=== PATIENT | male | born 1950 | race Caucasian/White ===

== ENCOUNTER 2017-05-21 03:03 | Inpatient (IN) ==
[2017-05-21] MEDS ORDERED: Naloxone 0.4 MG/ML INJ IVP PRN (06:17)
[2017-05-21] MEDS ORDERED: Ondansetron 4 MG/2 ML VIAL IVP PRN (06:17)
[2017-05-21] MEDS ORDERED: Dextrose Gel 15 GM PO PRN ×2 (06:20)
[2017-05-21] MEDS ORDERED: *HR* Dextrose 50 % in Water (Syg) 50 ML SYRINGE IVP PRN (06:20)
[2017-05-21] MEDS ORDERED: D5% in Water 1,000 ML IVC PRN (06:20)
[2017-05-21] MEDS ORDERED: Insulin LISPRO 300 UNITS/3 ML VIAL SQ SCH ×2 (06:20→21:00)
[2017-05-21] MEDS ORDERED: niCARdipine 20 MG/200 ML MLS IVC SCH (06:30)
--- NOTE | 2017-05-21 06:41 | Internal Med History&Physical ---
Date of Encounter: 05/21/17 Time of Encounter: 05:50 Assessment and Plan (1) Abdominal pain Current visit: No Status: Acute Resolved at this time reports of history of gastric ulcer in the past will continue supportive care at this time CT findings reported calcifications in the abdominal aorta suggesting a remote dissection Case discussed with Vascular surgery and given clinical presentation and no limb ischemia, medical management is recommended Aggressive BP control, to maintain BP<120/80 Noted to have elevated Lipase, with no acute findings on CT suggestive of pancreatitis, will closely monitor Qualifiers: Abdominal location: generalized Qualified Code(s): R10.84 - Generalized abdominal pain (2) Abdominal aortic aneurysm Current visit: Yes Status: Chronic Qualifiers: Presence of rupture: without rupture Qualified Code(s): I71.4 - Abdominal aortic aneurysm, without rupture (3) Hypertension Current visit: Yes Status: Chronic Started on Nicardipine drip due to HTN urgency will titrate off drip closely monitor BP to maintain BP<120/80 Resume home medications after verification Qualifiers: Hypertension type: essential hypertension Qualified Code(s): I10 - Essential (primary) hypertension (4) DVT prophylaxis Current visit: Yes Status: Acute Heparin SQ (5) CKD (chronic kidney disease) stage 3, GFR 30-59 ml/min Current visit: Yes Status: Chronic Renal function at baseline continue to monitor (6) Type 2 diabetes mellitus Current visit: No Status: Acute Reports history of neuropathy continue sliding scale insulin algorithm closely monitor FS and BG Resume home insulin dosing after verifying home medications Qualifiers: Diabetes mellitus complication status: with unspecified complications 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 Diamond is a 66 year old male with PMH of CAD, HTN, DM, chronic smoker, obesity who was transferred from [facility] for evaluation remote abdominal aortic dissection. Patient went to [facility] for evaluation of abdominal pain x 3 days. He reports of generalized abd pain associated with nausea and vomiting. Upon further evaluation, patient's CT abd/pelvis reported calcifications in the abd aorta suggesting remote dissection. Case was discussed with the vascular surgeon talent acquisition specialist by the ER physician prior to transfer. At this time patient is resting in bed and reports of no abdominal pain at this time. Denies any headache, chest pain, sob, abd pain, n/v, fever or chills. I spoke with Dr. Vargas who will see the patient but states given the calcifications on the CT scan, it appears to be a chronic process and since no limb ischemia is present, medical management with aggressive BP control is recommended. Patient reports of being an everyday smoker. Past Med Surg Social Fam HX - Past Medical History Medical history: diabetes, hypertension, myocardial infarction Psychiatric history: no psych history - Social History Smoking Status: Current every day smoker Packs per day: 1 PACK EVERY 3 DAYS Smokeless Tobacco Status: No Alcohol use: none Drug use: none Internal Medicine - H&P: Meds Carvedilol [Coreg] 6.25 mg PO BIDWM 05/29/16 [History] GlipiZIDE XL (24 HR) [Glucotrol XL] 2.5 mg PO 0800 05/29/16 [History] Losartan Potassium [Cozaar] 100 mg PO DAILY 05/29/16 [History] Pioglitazone HCl [Actos] 15 mg PO DAILY 05/29/16 [History] Pravastatin Sodium [Pravachol] 40 mg PO HS 05/29/16 [History] RX: Aspirin 81 mg PO DAILY 05/29/16 [History] RX: Hydralazine HCl 50 mg PO BID 05/29/16 [History] RX: hydroCHLOROthiazide [Hydrochlorothiazide] 12.5 mg PO DAILY #10 tablet [Rx] Allergies codeine Adverse Reaction (Verified 05/21/17 00:25) Vomiting All Systems PM: A 10-system review of systems was performed and is negative for pertinent findings except as documented above in the HPI. - Constitutional Constitutional: as per HPI - Constitutional Vitals: Temp Pulse Resp BP Pulse Ox 97.6 F 71 20 149/72 95 05/21/17 05:16 05/21/17 05:31 05/21/17 05:16 05/21/17 05:16 05/21/17 05:31 General appearance: Present: cooperative, A&O X 3, no acute distress, obese, answers questions appropriately - Head Head exam: Present: atraumatic, normocephalic - Respiratory Respiratory exam: Present: CTAB. Absent: accessory muscle use, rales, rhonchi, wheezes - Cardiovascular Cardiovascular exam: Present: RRR, +S1, +S2. Absent: diastolic murmur, gallop, rubs, systolic murmur - GI/Abdominal GI/Abdominal exam: Present: normal bowel sounds, soft, no peritoneal signs. Absent: distended, tenderness - Extremities Exam Extremities exam: Present: warm, radial pulses palpable and symetrical. Absent : calf tenderness, pedal edema - Neurological Exam Neurological exam: Present: alert, oriented X3 - Psychiatric Psychiatric exam: Present: normal affect, normal mood
[2017-05-21 07:01] LABS: Prothrombin Time 10.5 Seconds (9.4-12.1)
[2017-05-21 07:06] LABS: Albumin 2.6 g/dL (3.5-5.0); Albumin/Globulin Ratio 0.7 (1.1-2.2); Basophils # 0.1 K/mcL (0.0-0.2); Basophils % 0.4 %; Bilirubin,Total 0.4 mg/dL (0.2-1.2); Calcium 8.5 mg/dL (8.6-10.8); Chol/HDL Ratio 6.5 (0-4.9); Eosinophils # 0.1 K/mcL (0.0-0.6); Eosinophils % 0.9 %; Globulin 3.6 g/dL (2.4-3.5); Hematocrit 40.8 % (37.5-50.1); Hemoglobin 13.4 g/dL (12.9-16.9); Immature Granulocytes % 0.9 % (0-4); Lymphocytes # 1.5 K/mcL (0.6-4.6); Lymphocytes % 13.3 %; Magnesium 1.4 mg/dL (1.6-2.6); Mean Corpuscular HGB Conc 32.8 g/dL (31.6-35.5); Mean Corpuscular Volume 85.4 fL (83.0-100.0); Monocytes % 8.9 %; Neutrophils # 8.5 K/mcL (1.6-8.9); Phosphorous 2.6 mg/dL (2.3-4.7); Platelet Count 191 K/mcL (140-400); Potassium 4.1 mEq/L (3.5-4.5); Red Blood Count 4.78 M/mcL (4.19-5.50); Red Cell Distribution Width 14.4 % (11.5-14.5); Segmented Neutrophils % 75.6 %; Total Protein 6.2 g/dL (6.0-8.3)
[2017-05-21] MEDS ORDERED: niCARdipine 40 MG/200 ML MLS IVC SCH ×5 (08:30→09:00)
--- NOTE | 2017-05-21 09:42 | Vascular/Endovasc Consult Note ---
Date of Encounter: 05/21/17 Time of Encounter: 07:40 Assessment and Plan (1) Aortic dissection, abdominal Current Visit: Yes Status: Chronic The patient reports several days of nausea and abdominal pain. He is now pain free. As part of his evaluation he underwent a noncontrast CT scan that revealed evidence of a calcified aortic dissection. The patient has no evidence of vascular compromise. The dissection appears chronic. There are no aneurysmal segments. He has palpable pedal pulses. Given the degree of calcium , this appears to be a chronic condition. In the absence of aneurysmal degeneration, no further evaluation is necessary at this time. Recommend control of hypertension. He may follow-up in vascular clinic after discharge. (2) Mixed hyperlipidemia Current Visit: Yes Status: Acute (3) CKD (chronic kidney disease) stage 3, GFR 30-59 ml/min Current Visit: Yes Status: Chronic (4) Hypertension Current Visit: Yes Status: Chronic The patient was counseled regarding atherosclerotic risk factor reduction. 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 - History of Present Illness Consult date: 05/21/17 Requesting physician: Luz Maria Stewart Consult reason: aortic dissection Chief complaint: Abdominal pain History of present illness: Mr. Diamond is a 66 year old male with a history of hypertensino, hyperlipidemai , diabetes, chronic kidney disease and tobacco abuse. The patient reports that he was experieincing progressive abdominal pain for several days. He went to the [facility] ER and was evaluated. As part of his evaluation, he underwent a noncontrast CT scan and findings of a possible distal aortic dissection were noted. The patient was also noted to be hypertensive. He was transferred to [facility] for further evaluation and management. Since arrival, he reports that his abdominal pain has resolved. He states that he was experiencing nausea, but did not vomit. His nausea has resolved. He denies claudication, rest pain, ulceration or gangrene. He denies chest pain or shortness of breath. Past Med Surg Social Fam HX - Past Medical History Medical history: diabetes, hypertension, myocardial infarction Psychiatric history: no psych history - Social History Smoking Status: Current every day smoker Packs per day: 1 PACK EVERY 3 DAYS Smokeless Tobacco Status: No Alcohol use: none Drug use: none Medications and Allergies Aspirin 81 mg PO DAILY 05/29/16 [History] Carvedilol [Coreg] 6.25 mg PO BIDWM 05/29/16 [History] GlipiZIDE XL (24 HR) [Glucotrol XL] 5 mg PO 0800 05/29/16 [History] Hydralazine HCl 50 mg PO BID 05/29/16 [History] Losartan Potassium [Cozaar] 100 mg PO DAILY 05/29/16 [History] Atorvastatin [Lipitor] 40 mg PO HS 05/21/17 [History] Allergies codeine Adverse Reaction (Verified 05/21/17 00:25) Vomiting All Systems Review: A 10-system review of systems was performed and is negative for pertinent findings except as documented above in the HPI. Exam Vital Signs, Last 4 Hours Temp Pulse Resp BP Pulse Ox 05/21/17 06:33 97.9 F 77 17 118/57 92 General: Present: Conversant, No Apparent Distress, Well developed, Well nourished HEENT: Present: Atraumatic, Normocephaly, Trachea midline, Pupils equal Neck: Absent: JVD, Lymphadenopathy, Left Carotid bruit, Right Carotid bruit Cardiac: Present: Reg Rate and Rhythm, Normal S1 and S2, No Murmur Lungs: Present: Normal Breath Sounds, No Wheeze, Rales, Rhonchi Neuro: Present: Alert and responsive, No focal deficits noted, Cranial nerves grossly intact, Motor nerves grossly intact, Sensory nerves grossly intact Abdomen: Present: Non-tender, Other (obese). Absent: Hepatosplenomegaly, Masses Vascular: Present: Normal capillary refill, Pulse, normal. Absent: Clubbing, Cyanosis, Edema Skin: Present: No rashes noted on visualized skin Musculoskeletal: Present: No Chest Wall Tenderness Consult Discharge Plan - Plan Referrals: NO,PCP [Primary Care Provider] - Grant Vargas MD [Partnered Physician] - (2-3 weeks after discharge.)
--- NOTE | 2017-05-21 09:45 | Operative Note ---
Date of procedure: 05/21/17 Pre-op diagnosis: Chronic venous hypertension with inflammation, symptomatic varicose veins Post-op diagnosis: same Procedure: Right lower extremity phlebectomy requiring 22 incisions. Complications: None Anesthesia: MAC, local Surgeon: Grant Vargas Estimated blood loss (cc): 25 Specimen: varicose veins Condition: stable Disposition: same day
[2017-05-21] MEDS: Aspirin 81 MG TAB.CHEW PO SCH (10:09)
[2017-05-21] MEDS: Insulin LISPRO 300 UNITS/3 ML VIAL SQ SCH ×2 (12:20→17:18)
[2017-05-21] MEDS ORDERED: hydrALAZINE 25 MG TABLET PO ONE (14:40)
[2017-05-21] MEDS ORDERED: hydrOXYzine pamoate 25 MG CAPSULE PO PRN ×2 (14:41→14:45)
[2017-05-21] MEDS: *HR* Heparin 5,000 UNIT/ML VIAL SQ SCH (18:36)
[2017-05-21] MEDS: hydrALAZINE 25 MG TABLET PO SCH (21:01)
[2017-05-22 01:07] LABS: Basophils % 0.4 %; Eosinophils # 0.1 K/mcL (0.0-0.6); Eosinophils % 1.4 %; Hemoglobin 13.1 g/dL (12.9-16.9); Immature Granulocytes % 0.2 % (0-4); Lymphocytes # 2.1 K/mcL (0.6-4.6); Lymphocytes % 23.1 %; Mean Corpuscular HGB Conc 33.6 g/dL (31.6-35.5); Mean Corpuscular Hemoglobin 28.9 pg (28.0-33.3); Mean Corpuscular Volume 86.1 fL (83.0-100.0); Mean Platelet Volume 10.6 fL (9.4-12.4); Monocytes % 10.8 %; Neutrophils # 5.9 K/mcL (1.6-8.9); Platelet Count 192 K/mcL (140-400); Red Blood Count 4.53 M/mcL (4.19-5.50); Red Cell Distribution Width 14.6 % (11.5-14.5); Segmented Neutrophils % 64.1 %
[2017-05-22 01:20] LABS: Calcium 8.6 mg/dL (8.6-10.8); Magnesium 1.8 mg/dL (1.6-2.6); Phosphorous 3.8 mg/dL (2.3-4.7); Potassium 4.2 mEq/L (3.5-4.5)
[2017-05-22] MEDS: *HR* Heparin 5,000 UNIT/ML VIAL SQ SCH (05:50)
[2017-05-22 07:30] VITALS: BP 145/63
[2017-05-22] MEDS: Aspirin 81 MG TAB.CHEW PO SCH (08:09)
[2017-05-22] MEDS: hydrALAZINE 25 MG TABLET PO SCH (08:09)
[2017-05-22] MEDS: Insulin LISPRO 300 UNITS/3 ML VIAL SQ SCH (08:09)
--- NOTE | 2017-05-22 09:07 | Discharge Summary ---
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 insulin use status Qualified Code(s): E11.8 - Type 2 diabetes mellitus with unspecified complications (2) Hypertension Priority: Primary Status: Chronic Qualifiers: Hypertension type: essential hypertension Qualified Code(s): I10 - Essential (primary) hypertension (3) Aortic dissection, abdominal Priority: Primary Status: Chronic - Discharge Medications Home Medications: Aspirin 81 mg PO DAILY 05/29/16 [History] Carvedilol [Coreg] 6.25 mg PO BIDWM 05/29/16 [History] GlipiZIDE XL (24 HR) [Glucotrol XL] 5 mg PO 0800 05/29/16 [History] Hydralazine HCl 50 mg PO BID 05/29/16 [History] Losartan Potassium [Cozaar] 100 mg PO DAILY 05/29/16 [History] Atorvastatin [Lipitor] 40 mg PO HS 05/21/17 [History] Allergies/Adverse Reactions: Allergies codeine Adverse Reaction (Verified 05/21/17 00:25) Vomiting Date of admission: 05/21/17 06:17 Primary care physician: PCP NO Consults: 05/21/17 06:23 Consult to Vascular Surgery [CONS] Routine Consulting Provider: Vascular Surgery Geary Reason for Consult: Abdominal aorta remote dissection Call Completed: Yes Discharging clinician: Licha Lyn Anticipated date of discharge: 05/22/17 - Patient Status Disposition: Home, Self-Care Condition: Fair Functional capacity at discharge: independent ambulation Overall status at discharge: patient is back to baseline - Discharge Instructions Instructions: Heart Healthy Diet (DC), Peripheral Vascular Disorders (DC), Meal Planning with Diabetes Exchanges (DC), Chronic Hypertension (DC) Follow Up With: Grant Vargas MD [Partnered Physician] - 06/08/17 2:50 pm (2-3 weeks after discharge.) Roni Haley CNP [Primary Care Provider] - 05/27/17 4:00 pm - Diet and Activity Activity: resume usual activities as tolerated Diet: advance to your usual diet Interval History: Mr. Diamond is a 66 year old male with a history of hypertension, hyperlipidemai , diabetes, chronic kidney disease and tobacco abuse. The patient reports that he was experieincing progressive abdominal pain for several days. He went to the [facility] ER and was evaluated. As part of his evaluation, he underwent a noncontrast CT scan and findings of a possible distal aortic dissection were noted. The patient was also noted to be hypertensive. He was transferred to [facility] for further evaluation and management. Since arrival, he reports that his abdominal pain has resolved. HE was started on nicardipine dripas his BP was noted to be systolic of 200s He states that he was experiencing nausea, but did not vomit. His nausea has resolved. He denies claudication, rest pain, ulceration or gangrene. He denies chest pain or shortness of breath. his lipase was mildly elevated but CT did not show any signs of pancreatic inflammation. As part of his evaluation he underwent a noncontrast CT scan that revealed evidence of a calcified aortic dissection. Vascular surgery was consulted and recommended that The patient has no evidence of vascular compromise. The dissection appears chronic. There are no aneurysmal segments. He has palpable pedal pulses. Given the degree of calcium, this appears to be a chronic condition. In the absence of aneurysmal degeneration, no further evaluation is necessary at this time. HE was restartd on his home BP meds, nicardipine drip was weaned off. BP remained stable and he remained asymptomatic. He will follow-up in vascular clinic after discharge. he is being dc in stable condition. Hospital course: Mr. Diamond is a 66 year old male - Time Spent with Patient Total time spent providing and/or coordinating discharge services: - Constitutional Vitals: Temp Pulse Resp BP Pulse Ox 97.8 F 65 16 145/63 94 05/22/17 07:27 05/22/17 07:27 05/22/17 07:27 05/22/17 07:27 05/22/17 07:27 General appearance: Present: cooperative, A&O X 3, no acute distress, obese, answers questions appropriately Exam: HEENT: Present: Atraumatic, Normocephaly, Trachea midline, Pupils equal Neck: Absent: JVD, Lymphadenopathy, Left Carotid bruit, Right Carotid bruit Cardiac: Present: Reg Rate and Rhythm, Normal S1 and S2, No Murmur Lungs: Present: Normal Breath Sounds, No Wheeze, Rales, Rhonchi Neuro: Present: Alert and responsive, No focal deficits noted, Cranial nerves grossly intact, Motor nerves grossly intact, Sensory nerves grossly intact Abdomen: Present: Non-tender, Other (obese). Absent: Hepatosplenomegaly, Masses Vascular: Present: Normal capillary refill, Pulse, normal. Absent: Clubbing, Cyanosis, Edema Skin: Present: No rashes noted on visualized skin Musculoskeletal: Present: No Chest Wall Tenderness - VTE Documentation of Mechanical Device: Intermittent pneumatic compression device
== END 2017-05-22 10:10 | disposition home or self-care (01) | DRG 301 ==
LOC: 2NNU
PROVIDERS: ADMIT Internal Medicine; ATTEND Internal Medicine Endocrinology, Diabetes & Metabolism

== ENCOUNTER 2018-12-26 22:32 | Inpatient (IN) ==
[2018-12-26] MEDS ORDERED: Isovue-370 500 ML BOTTLE IVP ONE (23:39)
--- NOTE | 2018-12-26 23:51 | Emergency Department Note ---
Disposition Clinical Impression: Pulmonary nodule Acute pancreatitis Qualifiers: Pancreatitis type: unspecified pancreatitis type Acute pancreatitis complication: unspecified Qualified Code(s): K85.90 - Acute pancreatitis without necrosis or infection, unspecified Disposition: Admitted As Inpatient Condition: Fair Referrals: Mickey Batista MD [Primary Care Provider] - Forms: ED Satisfaction Letter, Work/School Release Time of Disposition: 02:18 General Adult HPI - General Chief complaint: ED Abdominal Pain Stated complaint: abdominal pain Time Seen by Provider: 12/26/18 23:05 Source: patient, family Limitations: no limitations Nursing Notes Reviewed: Yes Vital Signs Reviewed: Yes - History of Present Illness HPI Narrative: Patient is a 68-year-old male presenting with abdominal and back pain. Patient has history of CAD status post 1 stent, hypertension, hyperlipidemia. Patient states that at 9 AM he began to have abdominal pain that radiated into his back, that became sharp and shooting around 4 PM. Patient states that this progressiv rosendo got worse with associated nausea. He denies any shortness of breath. He states that no pain when to his chest. He denies lightheaded or dizziness. He has not had any vomiting. No diarrhea. No recent fevers or chills. Patient describes the pain as sharp shooting in nature, with no exacerbating or alleviating factors. Pain Scale: 0 - Related Data Home Medications Medication Instructions Recorded Confirmed Aspirin 81 mg PO DAILY 05/29/16 12/27/18 Carvedilol [Coreg] 6.25 mg PO BIDWM 05/29/16 12/27/18 GlipiZIDE XL (24 HR) [Glucotrol XL] 5 mg PO 0800 05/29/16 12/27/18 Hydralazine HCl 50 mg PO BID 05/29/16 12/27/18 Losartan Potassium [Cozaar] 100 mg PO DAILY 05/29/16 12/27/18 Allergies Allergy/AdvReac Type Severity Reaction Status Date / Time codeine Allergy Rash Verified 12/26/18 22:35 All systems ED: reviewed and negative except as stated. Review of Systems: As Per HPI Constitutional: Denies: fever, chills, weakness, weight change Eyes: Denies: eye pain, eye discharge, vision change ENT ED: Denies: congestion Cardiovascular: Denies: chest pain, palpitations, dyspnea on exertion Respiratory: Denies: cough, dyspnea Gastrointestinal: Reports: abdominal pain, nausea. Denies: vomiting, diarrhea Genitourinary: Denies: dysuria Musculoskeletal: Reports: back pain Integumentary: Denies: rash Neurological: Denies: headache, weakness, confusion Endocrine: Denies: fatigue Past Medical History - Past Medical History Attestation: Yes The following information was validated with the patient. Source: patient Medical history: Reports: diabetes, hypertension, myocardial infarction, other Psychiatric history: Reports: no psych history - Social History Smoking Status: Current some day smoker Smokeless Tobacco Status: No Alcohol use: Reports: none Drug use: Reports: none Physical Exam - General Limitations: no limitations General appearance: alert - Head Head exam: atraumatic - Eye Eye exam: Present: normal appearance, PERRL, EOMI - ENT ENT exam: normal exam, normal oropharynx, mucous membranes moist - Neck Neck exam: Present: normal inspection, full ROM, trachea midline - Chest Chest inspection: Present: normal inspection, symmetric chest wall rise - Respiratory Respiratory exam: Present: normal lung sounds bilaterally - Cardiovascular Cardiovascular exam: Present: regular rate, normal rhythm, normal heart sounds - Abdominal Exam Abdominal exam: Present: soft, tenderness (Patient has significant tenderness in the epigastric region, extending down to the middle the abdomen, along with paraspinal tenderness along the back, no midline tenderness in the thoracic or lumbar region). Absent: distention, guarding, rebound, rigidity - Extremities Exam Extremities exam: Present: normal inspection, full ROM. Absent: tenderness, pedal edema - Back Exam Back exam: Present: normal inspection, full ROM - Neurological Exam Neurological exam: Present: alert, oriented X3 - Psychiatric Psychiatric exam: Present: normal affect, normal mood - Skin Skin exam: Present: warm, normal color Course Vital Signs Temperature 98.0 F 12/26/18 22:35 Pulse Rate 80 12/26/18 22:35 Respiratory Rate 16 12/26/18 22:35 Blood Pressure 208/70 12/26/18 22:35 O2 Sat by Pulse Oximetry 96 12/26/18 22:35 Temperature 98.0 F 12/26/18 22:35 Pulse Rate 80 12/26/18 22:35 Respiratory Rate 16 12/26/18 22:35 Blood Pressure 208/70 12/26/18 22:35 O2 Sat by Pulse Oximetry 97 12/27/18 00:08 Oxygen Delivery Oxygen Delivery Room Air Medical Decision Making - [facility] Narrative Medical decision making narrative: Patient is a 68-year-old male presenting with abdominal pain that radiates straight into his back. Patient states this is sharp shooting in nature. Patient states this started abruptly approximately 4 hours prior to arrival. On arrival, patient appears in pain, grasping at his mid abdomen, he does have some nausea. Blood pressure is 200 systolic. Patient with history of abdominal aortic aneurysm per family. Patient has history of CAD status post 1 stent, hypertension as well as hyperlipidemia. With patient's symptoms greatest concern is for dissection, CTA will be ordered immediately. Patient was given antiemetic as well as pain medications. CBC is stable, no anemia is noted, BMP shows slight serum creatinine elevation at 1.31, however appears to be chronic. Of significance the lipase was greater than 1800, bilirubin as well as liver function is all within normal limits. CTA does not show active dissection, does show fat stranding around the pancreas. No gallstones are noted per my read. Does not appear to have acute obstruction. Suggestive of pancreatitis. There is also redness incidental finding of pulmonary nodule. This will need to be have follow-up in the next 6-[address] scan. At this point in time, patient has been started on 1 L fluid she has been maintained nothing by mouth. I did discuss the findings with the patient, he agrees to admission at this point in time. We will get the patient admitted. - Medical Records Medical records reviewed: Yes I reviewed the patient's medical records. - Lab Data Lab results reviewed: Yes I reviewed the patient's lab results. Result diagrams: 12/26/18 23:48 12/26/18 23:48 Lab Results 12/26/18 12/26/18 12/26/18 Range/Units 23:48 23:48 23:48 WBC 11.5 H (4.3-11.1) K/mcL RBC 4.65 (4.19-5.50) M/mcL Hgb 13.2 (12.9-16.9) g/dL Hct 39.9 (37.5-50.1) % MCV 85.8 (83.0-100.0) fL MCH 28.4 (28.0-33.3) pg MCHC 33.1 (31.6-35.5) g/dL RDW 14.8 H (11.5-14.5) % Plt Count 221 (140-400) K/mcL MPV 10.8 (9.4-12.4) fL Immature Gran % 0.3 (0-4) % Seg Neutrophils % 69.4 % Lymphocytes % 18.1 % Monocytes % 10.0 % Eosinophils % 1.7 % Basophils % 0.5 % Neutrophils # 8.0 (1.6-8.9) K/mcL Lymphocytes # 2.1 (0.6-4.6) K/mcL Monocytes # 1.2 (0.0-1.3) K/mcL Eosinophils # 0.2 (0.0-0.6) K/mcL Basophils # 0.1 (0.0-0.2) K/mcL Immature Plt Fraction 3.4 (1.1-6.1) % PT 10.0 (9.4-12.1) Seconds INR 0.9 APTT 34.6 (26.0-36.0) Seconds Sodium 134 L (136-145) mEq/L Potassium 4.2 (3.5-5.1) mEq/L Chloride 106 (98-107) mEq/L Carbon Dioxide 22 L (23-29) mEq/L BUN 27 H (8-23) mg/dL Creatinine 1.31 H (0.70-1.30) mg/dL Est GFR ( Amer) > 60 (> 60) Est GFR (Non-Af Amer) 55 L (> 60) BUN/Creatinine Ratio 21 (6-26) Glucose 243 H (70-105) mg/dL Calculated Osmolality 291 (280-300) Calcium 8.4 L (8.6-10.3) mg/dL Total Bilirubin 0.2 L (0.3-1.0) mg/dL Direct Bilirubin 0.0 (0.0-0.2) mg/dL Indirect Bilirubin 0.2 (0.0-1.2) mg/dL AST 12 L (13-39) Units/L ALT 8 (7-52) Units/L Alkaline Phosphatase 66 (34-104) Units/L Troponin I < 0.03 (< 0.04) ng/mL Serum Total Protein 6.0 L (6.4-8.9) g/dL Albumin 3.0 L (3.5-5.7) g/dL Globulin 3.0 (2.4-3.5) g/dL Albumin/Globulin Ratio 1.0 L (1.1-2.2) Lipase > 1800 H (11-82) Units/L Urine Color (Yellow) Urine Clarity (Clear) Urine pH (5.0-8.0) pH Units Ur Specific [place] (1.010-1.025) Urine Protein (Neg-Trace) mg/dL Urine Glucose (UA) (Normal) mg/dL Urine Ketones (Negative) mg/dL Urine Blood (Negative) Urine Nitrite (Negative) Urine Bilirubin (Negative) Urine Urobilinogen (Normal) mg/dL Ur Leukocyte Esterase (Negative) Urine Microscopic RBC (0-3) per hpf Urine Microscopic WBC (0-3) per hpf Ur Squamous Epith Cells (None-Few) per lpf Urine Bacteria (None-Few) per hpf Hyaline Casts (None-Few) per lpf Blood Type Antibody Screen 12/26/18 12/27/18 Range/Units 23:48 01:15 WBC (4.3-11.1) K/mcL RBC (4.19-5.50) M/mcL Hgb (12.9-16.9) g/dL Hct (37.5-50.1) % MCV (83.0-100.0) fL MCH (28.0-33.3) pg MCHC (31.6-35.5) g/dL RDW (11.5-14.5) % Plt Count (140-400) K/mcL MPV (9.4-12.4) fL Immature Gran % (0-4) % Seg Neutrophils % % Lymphocytes % % Monocytes % % Eosinophils % % Basophils % % Neutrophils # (1.6-8.9) K/mcL Lymphocytes # (0.6-4.6) K/mcL Monocytes # (0.0-1.3) K/mcL Eosinophils # (0.0-0.6) K/mcL Basophils # (0.0-0.2) K/mcL Immature Plt Fraction (1.1-6.1) % PT (9.4-12.1) Seconds INR APTT (26.0-36.0) Seconds Sodium (136-145) mEq/L Potassium (3.5-5.1) mEq/L Chloride (98-107) mEq/L Carbon Dioxide (23-29) mEq/L BUN (8-23) mg/dL Creatinine (0.70-1.30) mg/dL Est GFR ( Amer) (> 60) Est GFR (Non-Af Amer) (> 60) BUN/Creatinine Ratio (6-26) Glucose (70-105) mg/dL Calculated Osmolality (280-300) Calcium (8.6-10.3) mg/dL Total Bilirubin (0.3-1.0) mg/dL Direct Bilirubin (0.0-0.2) mg/dL Indirect Bilirubin (0.0-1.2) mg/dL AST (13-39) Units/L ALT (7-52) Units/L Alkaline Phosphatase (34-104) Units/L Troponin I (< 0.04) ng/mL Serum Total Protein (6.4-8.9) g/dL Albumin (3.5-5.7) g/dL Globulin (2.4-3.5) g/dL Albumin/Globulin Ratio (1.1-2.2) Lipase (11-82) Units/L Urine Color Yellow (Yellow) Urine Clarity Clear (Clear) Urine pH 6.0 (5.0-8.0) pH Units Ur Specific [place] 1.022 (1.010-1.025) Urine Protein >=1000 H (Neg-Trace) mg/dL Urine Glucose (UA) 100 H (Normal) mg/dL Urine Ketones Negative (Negative) mg/dL Urine Blood Negative (Negative) Urine Nitrite Negative (Negative) Urine Bilirubin Negative (Negative) Urine Urobilinogen Normal (Normal) mg/dL Ur Leukocyte Esterase Negative (Negative) Urine Microscopic RBC 3-5 H (0-3) per hpf Urine Microscopic WBC 0-3 (0-3) per hpf Ur Squamous Epith Cells Moderate H (None-Few) per lpf Urine Bacteria None Seen (None-Few) per hpf Hyaline Casts None Seen (None-Few) per lpf Blood Type O POSITIVE Antibody Screen NEGATIVE - Radiology Data Radiology results reviewed: Yes I reviewed the patient's radiology results. Chest X-Ray 12/26/18 23:39 IMPRESSION: No acute cardiopulmonary process D/ / Lewis Rogers / Lewis Rogers Interpreting Provider: Lewis Rogers Dissection 12/27/18 00:00 IMPRESSION: VASCULAR No evidence of an acute aortic syndrome. Heavy mixed calcified atherosclerotic plaque throughout the imaged aortoiliac system and branch vessels. Of note, there is moderate to severe luminal narrowing of the distal infrarenal abdominal aorta owing to atherosclerotic plaque, however, all of the visceral branch vessels are patent. Negative for acute pulmonary embolism. NONVASCULAR Fat stranding along the pancreas and duodenum suspicious for acute pancreatitis or duodenitis, favor the former given lack of duodenal wall thickening. 7 mm solid nodule in the right upper lobe. Recommend follow-up CT chest in 6-12 months. RECOMMENDATIONS: Fleischner Society guidelines for follow-up and management of incidentally detected pulmonary nodules: Single Solid Nodule: Nodule size equals 6-8 mm In a low-risk patient, CT at 6-12 months, then consider CT at 18-24 months. In a high-risk patient, CT at 6-12 months, then CT at 18-24 months. - Low risk patients include individuals with minimal or absent history of smoking and other known risk factors. - High risk patients include individuals with a history or smoking or known risk factors. Radiology 2017 http://pubs.rsna.org/doi/full/10.1148/radiol.[email or web address] D/ / Siva Mcrae / Siva Mcrae Interpreting Provider: Siva Mcrae - EKG Data EKG #1 EKG attestation: Yes I reviewed and interpreted this EKG. EKG results narrative: EKG performed at 2350 with ventricular rate of 69, regular rhythm, normal axis, no ST segment elevation or depression, nonspecific T-wave changes. S.B.A.RGary - S.Nixon.AHenry Situation: Demographics, MOA Background: Presenting Complaint, Relevant PMH, Meds, & Allergies Assessment: Vital Signs, Course and respsone to treatment, Exam Concerns, Patient/Family Expectation, Pertinant Lab Results, Outstanding Labs Recommendation: Barrier(s) to disposition, Recommendation based on pending studies, treatments, or consults S.B.AHenry Report Given to: Dr. Beatriz Whitley Repor Time: 02:19 (accepted)
[2018-12-27 00:08] LABS: Basophils # 0.1 K/mcL (0.0-0.2); Basophils % 0.5 %; Eosinophils # 0.2 K/mcL (0.0-0.6); Eosinophils % 1.7 %; Hematocrit 39.9 % (37.5-50.1); Hemoglobin 13.2 g/dL (12.9-16.9); Immature Granulocytes % 0.3 % (0-4); Immature Platelets 3.4 % (1.1-6.1); Lymphocytes # 2.1 K/mcL (0.6-4.6); Lymphocytes % 18.1 %; Mean Corpuscular HGB Conc 33.1 g/dL (31.6-35.5); Mean Corpuscular Hemoglobin 28.4 pg (28.0-33.3); Mean Corpuscular Volume 85.8 fL (83.0-100.0); Mean Platelet Volume 10.8 fL (9.4-12.4); Monocytes # 1.2 K/mcL (0.0-1.3); Platelet Count 221 K/mcL (140-400); Red Blood Count 4.65 M/mcL (4.19-5.50); Red Cell Distribution Width 14.8 % (11.5-14.5); Segmented Neutrophils % 69.4 %
[2018-12-27 00:21] LABS: INR 0.9
[2018-12-27 00:23] LABS: Activated Partial Thrombo Time 34.6 Seconds (26.0-36.0)
[2018-12-27 00:29] LABS: Alanine Aminotransferase 8 Units/L (7-52); Alkaline Phosphatase 66 Units/L (34-104); Aspartate Amino Transferase 12 Units/L (13-39); BUN/Creatinine Ratio 21 (6-26); Bilirubin,Indirect 0.2 mg/dL (0.0-1.2); Bilirubin,Total 0.2 mg/dL (0.3-1.0); Blood Urea Nitrogen 27 mg/dL (8-23); Calcium 8.4 mg/dL (8.6-10.3); Carbon Dioxide 22 mEq/L (23-29); Chloride 106 mEq/L (98-107); Glucose 243 mg/dL (70-105); Osmolality,Calculated 291 (280-300); Potassium 4.2 mEq/L (3.5-5.1); Sodium 134 mEq/L (136-145); Troponin I < 0.03 ng/mL (< 0.04); eGFR For Non-African Americans 55 (> 60)
[2018-12-27 00:41] LABS: Lipase > 1800 Units/L (11-82)
[2018-12-27] MEDS ORDERED: 0.9 % Sodium Chloride 1,000 ML IVC ONE (00:43)
[2018-12-27 01:28] LABS: Bilirubin,Urine Negative (Negative); Blood,Urine Negative (Negative); Clarity,Urine Clear (Clear); Color,Urine Yellow (Yellow); Glucose,Urine (UA) 100 mg/dL (Normal); Ketones,Urine Negative (Negative); Leukocyte Esterase,Urine Negative (Negative); Nitrite,Urine Negative (Negative); Protein,Urine >=1000 mg/dL (Neg-Trace); Specific Gravity,Urine 1.022 (1.010-1.025); Urobilinogen,Urine Normal (Normal)
[2018-12-27 01:29] LABS: Bacteria,Urine None Seen per hpf (None-Few); Hyaline Casts,Urine None Seen per lpf (None-Few); Squamous Epithelial Cell,Urine Moderate per lpf (None-Few); WBC,Urine 0-3 per hpf (0-3)
[2018-12-27] MEDS ORDERED: Ondansetron 4 MG/2 ML VIAL IVP ONE (01:48)
[2018-12-27] MEDS ORDERED: *HR* FentaNYL (PF) 100 MCG/2 ML VIAL IVP ONE (02:10)
--- NOTE | 2018-12-27 02:49 | Emergency Department Note ---
Disposition Clinical Impression: Pulmonary nodule Acute pancreatitis Qualifiers: Pancreatitis type: unspecified pancreatitis type Acute pancreatitis complication: unspecified Qualified Code(s): K85.90 - Acute pancreatitis without necrosis or infection, unspecified Disposition: Admitted As Inpatient Condition: Fair Referrals: Mickey Batista MD [Primary Care Provider] - Forms: ED Satisfaction Letter, Work/School Release General Adult HPI - General Chief complaint: ED Abdominal Pain Stated complaint: abdominal pain Time Seen by Provider: 12/26/18 23:05 Source: patient, family Limitations: no limitations Nursing Notes Reviewed: Yes Vital Signs Reviewed: Yes - History of Present Illness Pain Scale: 0 - Related Data Home Medications Medication Instructions Recorded Confirmed Aspirin 81 mg PO DAILY 05/29/16 12/27/18 Carvedilol [Coreg] 6.25 mg PO BIDWM 05/29/16 12/27/18 GlipiZIDE XL (24 HR) [Glucotrol XL] 5 mg PO 0800 05/29/16 12/27/18 Hydralazine HCl 50 mg PO BID 05/29/16 12/27/18 Losartan Potassium [Cozaar] 100 mg PO DAILY 05/29/16 12/27/18 Allergies Allergy/AdvReac Type Severity Reaction Status Date / Time codeine Allergy Rash Verified 12/26/18 22:35 Constitutional: Denies: fever, chills, weakness, weight change Eyes: Denies: eye pain, eye discharge, vision change ENT ED: Denies: congestion Cardiovascular: Denies: chest pain, palpitations, dyspnea on exertion Respiratory: Denies: cough, dyspnea Gastrointestinal: Reports: abdominal pain, nausea. Denies: vomiting, diarrhea Genitourinary: Denies: dysuria Musculoskeletal: Reports: back pain Integumentary: Denies: rash Neurological: Denies: headache, weakness, confusion Endocrine: Denies: fatigue Past Medical History - Past Medical History Medical history: Reports: diabetes, hypertension, myocardial infarction, other Psychiatric history: Reports: no psych history - Social History Smoking Status: Current some day smoker Smokeless Tobacco Status: No Alcohol use: Reports: none Drug use: Reports: none Physical Exam - General Limitations: no limitations General appearance: alert Course Vital Signs Temperature 98.0 F 12/26/18 22:35 Pulse Rate 80 12/26/18 22:35 Respiratory Rate 16 12/26/18 22:35 Blood Pressure 208/70 12/26/18 22:35 O2 Sat by Pulse Oximetry 96 12/26/18 22:35 Temperature 98.0 F 12/26/18 22:35 Pulse Rate 80 12/26/18 22:35 Respiratory Rate 16 12/26/18 22:35 Blood Pressure 208/70 12/26/18 22:35 O2 Sat by Pulse Oximetry 97 12/27/18 00:08 Oxygen Delivery Oxygen Delivery Room Air Medical Decision Making - Medical Records Medical records reviewed: Yes I reviewed the patient's medical records. - Lab Data Lab results reviewed: Yes I reviewed the patient's lab results. Result diagrams: 12/26/18 23:48 12/26/18 23:48 Lab Results 12/26/18 12/26/18 12/26/18 Range/Units 23:48 23:48 23:48 WBC 11.5 H (4.3-11.1) K/mcL RBC 4.65 (4.19-5.50) M/mcL Hgb 13.2 (12.9-16.9) g/dL Hct 39.9 (37.5-50.1) % MCV 85.8 (83.0-100.0) fL MCH 28.4 (28.0-33.3) pg MCHC 33.1 (31.6-35.5) g/dL RDW 14.8 H (11.5-14.5) % Plt Count 221 (140-400) K/mcL MPV 10.8 (9.4-12.4) fL Immature Gran % 0.3 (0-4) % Seg Neutrophils % 69.4 % Lymphocytes % 18.1 % Monocytes % 10.0 % Eosinophils % 1.7 % Basophils % 0.5 % Neutrophils # 8.0 (1.6-8.9) K/mcL Lymphocytes # 2.1 (0.6-4.6) K/mcL Monocytes # 1.2 (0.0-1.3) K/mcL Eosinophils # 0.2 (0.0-0.6) K/mcL Basophils # 0.1 (0.0-0.2) K/mcL Immature Plt Fraction 3.4 (1.1-6.1) % PT 10.0 (9.4-12.1) Seconds INR 0.9 APTT 34.6 (26.0-36.0) Seconds Sodium 134 L (136-145) mEq/L Potassium 4.2 (3.5-5.1) mEq/L Chloride 106 (98-107) mEq/L Carbon Dioxide 22 L (23-29) mEq/L BUN 27 H (8-23) mg/dL Creatinine 1.31 H (0.70-1.30) mg/dL Est GFR ( Amer) > 60 (> 60) Est GFR (Non-Af Amer) 55 L (> 60) BUN/Creatinine Ratio 21 (6-26) Glucose 243 H (70-105) mg/dL Calculated Osmolality 291 (280-300) Calcium 8.4 L (8.6-10.3) mg/dL Total Bilirubin 0.2 L (0.3-1.0) mg/dL Direct Bilirubin 0.0 (0.0-0.2) mg/dL Indirect Bilirubin 0.2 (0.0-1.2) mg/dL AST 12 L (13-39) Units/L ALT 8 (7-52) Units/L Alkaline Phosphatase 66 (34-104) Units/L Troponin I < 0.03 (< 0.04) ng/mL Serum Total Protein 6.0 L (6.4-8.9) g/dL Albumin 3.0 L (3.5-5.7) g/dL Globulin 3.0 (2.4-3.5) g/dL Albumin/Globulin Ratio 1.0 L (1.1-2.2) Lipase > 1800 H (11-82) Units/L Urine Color (Yellow) Urine Clarity (Clear) Urine pH (5.0-8.0) pH Units Ur Specific [place] (1.010-1.025) Urine Protein (Neg-Trace) mg/dL Urine Glucose (UA) (Normal) mg/dL Urine Ketones (Negative) mg/dL Urine Blood (Negative) Urine Nitrite (Negative) Urine Bilirubin (Negative) Urine Urobilinogen (Normal) mg/dL Ur Leukocyte Esterase (Negative) Urine Microscopic RBC (0-3) per hpf Urine Microscopic WBC (0-3) per hpf Ur Squamous Epith Cells (None-Few) per lpf Urine Bacteria (None-Few) per hpf Hyaline Casts (None-Few) per lpf Blood Type Antibody Screen 12/26/18 12/27/18 Range/Units 23:48 01:15 WBC (4.3-11.1) K/mcL RBC (4.19-5.50) M/mcL Hgb (12.9-16.9) g/dL Hct (37.5-50.1) % MCV (83.0-100.0) fL MCH (28.0-33.3) pg MCHC (31.6-35.5) g/dL RDW (11.5-14.5) % Plt Count (140-400) K/mcL MPV (9.4-12.4) fL Immature Gran % (0-4) % Seg Neutrophils % % Lymphocytes % % Monocytes % % Eosinophils % % Basophils % % Neutrophils # (1.6-8.9) K/mcL Lymphocytes # (0.6-4.6) K/mcL Monocytes # (0.0-1.3) K/mcL Eosinophils # (0.0-0.6) K/mcL Basophils # (0.0-0.2) K/mcL Immature Plt Fraction (1.1-6.1) % PT (9.4-12.1) Seconds INR APTT (26.0-36.0) Seconds Sodium (136-145) mEq/L Potassium (3.5-5.1) mEq/L Chloride (98-107) mEq/L Carbon Dioxide (23-29) mEq/L BUN (8-23) mg/dL Creatinine (0.70-1.30) mg/dL Est GFR ( Amer) (> 60) Est GFR (Non-Af Amer) (> 60) BUN/Creatinine Ratio (6-26) Glucose (70-105) mg/dL Calculated Osmolality (280-300) Calcium (8.6-10.3) mg/dL Total Bilirubin (0.3-1.0) mg/dL Direct Bilirubin (0.0-0.2) mg/dL Indirect Bilirubin (0.0-1.2) mg/dL AST (13-39) Units/L ALT (7-52) Units/L Alkaline Phosphatase (34-104) Units/L Troponin I (< 0.04) ng/mL Serum Total Protein (6.4-8.9) g/dL Albumin (3.5-5.7) g/dL Globulin (2.4-3.5) g/dL Albumin/Globulin Ratio (1.1-2.2) Lipase (11-82) Units/L Urine Color Yellow (Yellow) Urine Clarity Clear (Clear) Urine pH 6.0 (5.0-8.0) pH Units Ur Specific [place] 1.022 (1.010-1.025) Urine Protein >=1000 H (Neg-Trace) mg/dL Urine Glucose (UA) 100 H (Normal) mg/dL Urine Ketones Negative (Negative) mg/dL Urine Blood Negative (Negative) Urine Nitrite Negative (Negative) Urine Bilirubin Negative (Negative) Urine Urobilinogen Normal (Normal) mg/dL Ur Leukocyte Esterase Negative (Negative) Urine Microscopic RBC 3-5 H (0-3) per hpf Urine Microscopic WBC 0-3 (0-3) per hpf Ur Squamous Epith Cells Moderate H (None-Few) per lpf Urine Bacteria None Seen (None-Few) per hpf Hyaline Casts None Seen (None-Few) per lpf Blood Type O POSITIVE Antibody Screen NEGATIVE - Radiology Data Radiology results reviewed: Yes I reviewed the patient's radiology results. Chest X-Ray 12/26/18 23:39 IMPRESSION: No acute cardiopulmonary process D/ / Lewis Rogers / Lewis Rogers Interpreting Provider: Lewis Rogers Dissection 12/27/18 00:00 IMPRESSION: VASCULAR No evidence of an acute aortic syndrome. Heavy mixed calcified atherosclerotic plaque throughout the imaged aortoiliac system and branch vessels. Of note, there is moderate to severe luminal narrowing of the distal infrarenal abdominal aorta owing to atherosclerotic plaque, however, all of the visceral branch vessels are patent. Negative for acute pulmonary embolism. NONVASCULAR Fat stranding along the pancreas and duodenum suspicious for acute pancreatitis or duodenitis, favor the former given lack of duodenal wall thickening. 7 mm solid nodule in the right upper lobe. Recommend follow-up CT chest in 6-12 months. RECOMMENDATIONS: Fleischner Society guidelines for follow-up and management of incidentally detected pulmonary nodules: Single Solid Nodule: Nodule size equals 6-8 mm In a low-risk patient, CT at 6-12 months, then consider CT at 18-24 months. In a high-risk patient, CT at 6-12 months, then CT at 18-24 months. - Low risk patients include individuals with minimal or absent history of smoking and other known risk factors. - High risk patients include individuals with a history or smoking or known risk factors. Radiology 2017 http://pubs.rsna.org/doi/full/10.1148/radiol.[email or web address] D/ / Siva Mcrae / Siva Mcrae Interpreting Provider: Siva Mcrae - EKG Data EKG #1 EKG attestation: Yes I reviewed and interpreted this EKG. EKG results narrative: EKG shows normal sinus rhythm with ventricular rate is 69. Low voltage in precordial leads. No ST segment elevation or depression. No arrhythmia or ectopy. Attestation Statement - Attestation Attestation: I, Fam Gonzalez MD, personally evaluated this patient and discussed their management with the resident physician. I reviewed the resident's note and agree with the documented findings, medical decision making, and plan of care. 68-year-old male presents to the emergency department complaining of severe mid abdominal pain radiating straight through to his back. This started about 9 AM today and has gotten progressively worse. There has been some nausea and dry heaves but no productive vomiting. No fever. No GI bleed symptoms. No urinary symptoms. No chest pain or shortness of breath. On examination patient is a well-developed well-nourished elderly male in no acute distress. He is alert and oriented 3. There is no cyanosis or diaphoresis. Breath sounds are clear and equal bilaterally. Heart regular. Abdomen soft with present bowel sounds. Mild to moderate mid abdominal tenderness. No guarding or rebound tenderness. EKG shows normal sinus rhythm with ventricular rate 69. Low voltage in precordial leads. No ST segment elevation or depression. No arrhythmia or ectopy. Chest x-ray negative. Labs reviewed. Lipase greater than 1800. CT aortogram obtained and showed no evidence of acute aortic syndrome or pulmonary embolism. It did show acute pancreatitis with surrounding inflammation and s tranding. The hospitalist, Dr. Henderson, was consulted and accepted admission of the patient.
[2018-12-27] MEDS ORDERED: Naloxone 0.4 MG/ML INJ IVP PRN (04:03)
[2018-12-27] MEDS ORDERED: D5% in Water 1,000 ML IVC PRN (04:08)
[2018-12-27] MEDS ORDERED: Dextrose Gel 15 GM/37.5 ML TUBE PO PRN ×2 (04:08)
[2018-12-27] MEDS ORDERED: *HR* Dextrose 50 % in Water (Syg) 50 ML SYRINGE IVP PRN (04:08)
[2018-12-27] MEDS ORDERED: OXYCODONE Oral CONC 10 MG/0.5 ML ORAL.SYG SL PRN ×2 (04:09)
[2018-12-27] MEDS: Ketorolac 30 MG/ML VIAL IVP PRN ×2 (05:04→13:09)
[2018-12-27] MEDS: Ringers Solution, Lactated 1,000 ML IVC SCH ×2 (05:05→12:37)
[2018-12-27] MEDS: Insulin LISPRO 300 UNITS/3 ML VIAL SQ SCH ×3 (05:57→17:19)
--- NOTE | 2018-12-27 06:12 | Internal Med History&Physical ---
Date of Encounter: 12/27/18 Time of Encounter: 06:03 Internal Medicine - H&P: HPI Chief complaint: Abdominal pain History of present illness: Mr. Diamond is a 68 year old male with a past medical history of pancreatitis, diabetes, hypertension, myocardial infarction who presented to the ED with a chief complaint of abdominal pain which began yesterday morning. Patient states that yesterday morning around 9 AM he noted periumbilical sharp abdominal pain shortly after having breakfast. Patient initially thought it was due to indigestion. However, the patient's pain got progressively worse noting that his pain seemed to be aggravated with meals. Into the evening the pain began radiating to his back when he became concerned and decided to come in for further evaluation. Symptoms associated with nausea and dry heaves. On arrival, patient appeared to be in pain, grasping at his mid abdomen. Blood pressure was 200 systolic. Due to concern for dissection, CTA was obtained which did not show any active dissection, however, fat stranding around the pancreas was noted. Patient states that this is his second episode with the prior episode occurring around . Patient denies any significant alcohol use. Patient was given antiemetic as well as pain medications. Laboratory workup was notable for a lipase greater than 1800; bilirubin as well as liver function is all within normal limits. CTA does not show active dissection, does show fat stranding around the pancreas. No evidence of gallstones in the gallbladder There was also an incidental finding of pulmonary nodule. Patient was started on 1 L fluid she has been maintained nothing by mouth. Past Med Surg Social Fam HX - Past Medical History Medical history: diabetes, hypertension, myocardial infarction, other Additional medical history: Stage 3 kidney disease. Psychiatric history: no psych history - Past Surgical History Additional surgical history: neck surgery; heart stent. Heart cath. - Social History Smoking Status: Current some day smoker Smokeless Tobacco Status: No Alcohol use: none Drug use: none - Family History Mother Living Status: Age at : 56 Cause of : PR Hx Family Cardiac Disorders: Yes (PR) Hx Family Endocrine Disorder: Yes Father Living Status: Age at : 56 Internal Medicine - H&P: Meds Aspirin 81 mg PO DAILY 05/29/16 [History] Carvedilol [Coreg] 6.25 mg PO BIDWM 05/29/16 [History] GlipiZIDE XL (24 HR) [Glucotrol XL] 5 mg PO 0800 05/29/16 [History] Hydralazine HCl 50 mg PO BID 05/29/16 [History] Losartan Potassium [Cozaar] 100 mg PO DAILY 05/29/16 [History] Allergy/AdvReac Type Severity Reaction Status Date / Time codeine Allergy Rash Verified 12/26/18 22:35 All Systems PM: A 10-system review of systems was performed and is negative for pertinent findings except as documented above in the HPI. - Constitutional Constitutional: no chills, no fever(s), no night sweats - EENT Eyes: no change in vision, no discharge, no pain, no photophobia Ears: no ear discharge, no ear pain, no tinnitus Nose, mouth and throat: no dysphagia, no nasal discharge, no neck pain, no sore throat - Cardiovascular Cardiovascular ROS IM: no chest pain, no diaphoresis, no dyspnea, no lightheadedness, no palpitations, no syncope - Respiratory Respiratory: no cough, no dyspnea, no wheezing, no excessive phlegm production - Gastrointestinal Gastrointestinal: no abdominal pain, no diarrhea, no hematemesis, no hematochezia, no melena, no nausea, no vomiting - Musculoskeletal Musculoskeletal ROS IM: no numbness, no tingling - Integumentary Integumentary IM: no rash, no unusual bruising - Neurological Neurological ROS: no confusion, no convulsions, no focal weakness, no numbness, no tingling, no tremor(s) - Hematologic/Lymphatic Hematologic/Lymphatic: no easy bruising - Constitutional Vitals: Temp Pulse Resp BP Pulse Ox 98.2 F 72 14 172/71 94 12/27/18 04:20 12/27/18 04:20 12/27/18 04:20 12/27/18 04:20 12/27/18 04:20 Exam: General: Alert and oriented 3 Skin:Normal color, no rash, no lesions. HEENT:EOM, pupils equal, round and reactive. Cardiovascular:Normal S1 & S2, no rubs, murmurs or gallops. No JVD. Pulse regular. Lungs:Normal breath sounds, no wheezes or crackles. Abdomen: Abdomen soft, mildly distended with tenderness to palpation in the per iumbilical region. Extremities:No deformity, no edema or tenderness, no joint swelling or clubbing. Neurological:Normal cognition and motor skills. Pulses:Carotid and radial pulses normal +2. Rest of the physical exam is non contributory Internal Med - H&P Results - Labs CBC & Chem 7: 12/27/18 07:01 12/27/18 07:01 Labs: Short CBC 12/26/18 Range/Units 23:48 WBC 11.5 H (4.3-11.1) K/mcL Hgb 13.2 (12.9-16.9) g/dL Hct 39.9 (37.5-50.1) % Plt Count 221 (140-400) K/mcL Neutrophils # 8.0 (1.6-8.9) K/mcL BMP 12/26/18 23:48 Sodium 134 L Potassium 4.2 Chloride 106 Carbon Dioxide 22 L BUN 27 H Creatinine 1.31 H Glucose 243 H Calcium 8.4 L Cardiac Enzymes 12/26/18 Range/Units 23:48 Troponin I < 0.03 (< 0.04) ng/mL Liver Function 12/26/18 Range/Units 23:48 Total Bilirubin 0.2 L (0.3-1.0) mg/dL Direct Bilirubin 0.0 (0.0-0.2) mg/dL AST 12 L (13-39) Units/L ALT 8 (7-52) Units/L Alkaline Phosphatase 66 (34-104) Units/L Albumin 3.0 L (3.5-5.7) g/dL Urine 12/27/18 Range/Units 01:15 Urine Color Yellow (Yellow) Urine Clarity Clear (Clear) Urine pH 6.0 (5.0-8.0) pH Units Ur Specific [place] 1.022 (1.010-1.025) Urine Protein >=1000 H (Neg-Trace) mg/dL Urine Glucose (UA) 100 H (Normal) mg/dL - Impressions ITS Impressions Chest X-Ray 12/26/18 23:39 IMPRESSION: No acute cardiopulmonary process D/ / Lewis Rogers / Lewis Rogers Interpreting Provider: Lewis Rogers Dissection 12/27/18 00:00 IMPRESSION: VASCULAR No evidence of an acute aortic syndrome. Heavy mixed calcified atherosclerotic plaque throughout the imaged aortoiliac system and branch vessels. Of note, there is moderate to severe luminal narrowing of the distal infrarenal abdominal aorta owing to atherosclerotic plaque, however, all of the visceral branch vessels are patent. Negative for acute pulmonary embolism. NONVASCULAR Fat stranding along the pancreas and duodenum suspicious for acute pancreatitis or duodenitis, favor the former given lack of duodenal wall thickening. 7 mm solid nodule in the right upper lobe. Recommend follow-up CT chest in 6-12 months. RECOMMENDATIONS: Fleischner Society guidelines for follow-up and management of incidentally detected pulmonary nodules: Single Solid Nodule: Nodule size equals 6-8 mm In a low-risk patient, CT at 6-12 months, then consider CT at 18-24 months. In a high-risk patient, CT at 6-12 months, then CT at 18-24 months. - Low risk patients include individuals with minimal or absent history of smoking and other known risk factors. - High risk patients include individuals with a history or smoking or known risk factors. Radiology 2017 http://pubs.rsna.org/doi/full/10.1148/radiol.[email or web address] D/ / Siva Mcrae / Siva Mcrae Interpreting Provider: Siva Mcrae - Assessment and plan (1) Acute pancreatitis Current Visit: Yes Status: Acute Assessment and plan: Patient presents with abdominal pain radiating to the back. Found to have a lipase level of greater than 1800. CT scan of the abdomen shows fat stranding along the pancreas and duodenum suspicious for acute pancreatitis. Patient made NPO and was started on aggressive fluid hydration. No evidence of CBD obstruction given his normal LFTs and T bili. At this time etiology of p atient's pancreatitis likely secondary to gallbladder as patient denies any history of alcohol use. - Keep NPO -Aggressive fluid hydration. We will start patient on lactated Ringer's at 250 mL an hour -Pain control -We will obtain a lipid panel -We will obtain right upper quadrant ultrasound Qualifiers: Pancreatitis type: idiopathic Acute pancreatitis complication: unspecified Qualified Code(s): K85.00 - Idiopathic acute pancreatitis without necrosis or infection (2) Pulmonary nodule Current Visit: Yes Status: Acute Assessment and plan: 7 mm solid nodule in the right upper lobe was noted on CT chest. Recommend follow-up CT chest in 6-12 months. (3) Type 2 diabetes mellitus Current Visit: No Status: Acute Assessment and plan: Type 2 diabetes. Continue Accu-Cheks every 6 hours. Sliding scale insulin every 6 hours Qualifiers: Diabetes mellitus residential insulin use: unspecified residential insulin use status Diabetes mellitus complication status: with unspecified complications Qualified Code(s): E11.8 - Type 2 diabetes mellitus with unspecified complications (4) CKD (chronic kidney disease) stage 3, GFR 30-59 ml/min Current Visit: No Status: Chronic Assessment and plan: CKG stage III. Creatinine found to be 1.31 on initial workup. This appears to be near patient's baseline. We will continue to monitor (5) Hypertension Current Visit: No Status: Chronic Assessment and plan: History of hypertension. Blood pressure mildly elevated. -When necessary hydralazine Qualifiers: Hypertension type: essential hypertension Qualified Code(s): I10 - Essential (primary) hypertension (6) DVT prophylaxis Current Visit: No Status: Acute Assessment and plan: Subcutaneous heparin - Time Spent With Patient Total time spent is greater than 50% in coordination of care (as documented) at patient's floor/unit and/or counseling patient:
[2018-12-27 07:33] LABS: Basophils # 0.1 K/mcL (0.0-0.2); Basophils % 0.5 %; Eosinophils # 0.1 K/mcL (0.0-0.6); Eosinophils % 1.3 %; Hematocrit 34.8 % (37.5-50.1); Hemoglobin 11.4 g/dL (12.9-16.9); Immature Granulocytes % 0.3 % (0-4); Lymphocytes # 1.6 K/mcL (0.6-4.6); Mean Corpuscular HGB Conc 32.8 g/dL (31.6-35.5); Mean Corpuscular Hemoglobin 28.1 pg (28.0-33.3); Mean Corpuscular Volume 85.7 fL (83.0-100.0); Mean Platelet Volume 10.8 fL (9.4-12.4); Monocytes # 1.1 K/mcL (0.0-1.3); Monocytes % 11.4 %; Platelet Count 193 K/mcL (140-400); Red Blood Count 4.06 M/mcL (4.19-5.50); Red Cell Distribution Width 14.9 % (11.5-14.5); Segmented Neutrophils % 70.5 %
[2018-12-27 08:10] LABS: Alanine Aminotransferase 8 Units/L (7-52); Albumin 2.7 g/dL (3.5-5.7); Alkaline Phosphatase 53 Units/L (34-104); Aspartate Amino Transferase 9 Units/L (13-39); BUN/Creatinine Ratio 18 (6-26); Bilirubin,Total 0.2 mg/dL (0.3-1.0); Blood Urea Nitrogen 24 mg/dL (8-23); Calcium 8.1 mg/dL (8.6-10.3); Carbon Dioxide 22 mEq/L (23-29); Chloride 108 mEq/L (98-107); Chol/HDL Ratio 7.1 (0-4.9); Cholesterol 185 mg/dL (< 200); Globulin 2.6 g/dL (2.4-3.5); Glucose 209 mg/dL (70-105); HDL Cholesterol 26 mg/dL (40-59); LDL Cholesterol,Calculated 110 mg/dL (0-99); Lipase 1312 Units/L (11-82); Osmolality,Calculated 292 (280-300); Sodium 136 mEq/L (136-145); Total Protein 5.3 g/dL (6.4-8.9); Triglycerides 243 mg/dL (< 150); eGFR For Non-African Americans 54 (> 60)
[2018-12-27] MEDS: 0.9 % Sodium Chloride 1,000 ML IVC SCH ×2 (10:43→18:59)
--- NOTE | 2018-12-27 14:15 | Internal Med Progress Note ---
Hospitalist Progress Note - Encounter Date of Encounter: 12/27/18 Time of Encounter: 09:30 - Subjective Interval History: Mr. Diamond is a 68 year old male with a past medical history of pancreatitis, diabetes, hypertension, myocardial infarction who presented to the ED with a chief complaint of abdominal pain which began 2 days ago. Initially it was 3/10 in severity, stabbing / dull pain which progressively worsened. His laboratory workup was notable for a lipase greater than 1800. U/S of RUQ showed no cholelithiasis on acute cholecystitis. Pt was admitted in the hospital and started him on IVF. Pt stated his abd pain is better today, he would like to eat. - Exam Vitals: Temp Pulse Resp BP Pulse Ox 97.4 F L 62 18 172/71 97 12/27/18 11:11 12/27/18 11:11 12/27/18 11:11 12/27/18 11:11 12/27/18 11:11 Exam: Gen: Alert, awake, Oriented to time,place and person Chest: Diminished breath sounds B/L, No wheezing, No crackles, No rales Heart: S1S2+ RRR No murmurs Abd: Soft, mild discomfort at epigastric and blake umbelical region, BS +, No organomegaly Ext: No edema, pulses are palpable, No calf tenderness Neuro : Benign findings Skin: No rash. - Assessment and Plan (1) Acute pancreatitis Current Visit: Yes Status: Acute Assessment and Plan: Improving slowly repeat Lipase still elevated @ 1312 Lipid profile showed TG-243 Will start him on statin upon d/c home cont IV hydration started him on clear liquid diet today (2) Type 2 diabetes mellitus Current Visit: No Status: Acute Assessment and Plan: Change ISS to ACHS ADA diet (3) Hypertension Current Visit: No Status: Chronic Assessment and Plan: Resumed all home meds fairly controlled cont iV hydralazine PRN (4) DVT prophylaxis Current Visit: No Status: Acute Assessment and Plan: Subcutaneous heparin (5) CKD (chronic kidney disease) stage 3, GFR 30-59 ml/min Current Visit: No Status: Chronic Assessment and Plan: CKD-3 at baseline Cr (6) Pulmonary nodule Current Visit: Yes Status: Acute Assessment and Plan: 7 mm solid nodule in the right upper lobe was noted on CT chest. Recommend follow-up CT chest in 6-12 months. - Time Spent with Patient Total time spent is greater than 50% in coordination of care (as documented) at patient's floor/unit and/or counseling patient: Internal Medicine: Result - Labs CBC & Chem 7: 12/27/18 07:01 12/27/18 07:01 Labs: Short CBC 12/26/18 12/27/18 Range/Units 23:48 07:01 WBC 11.5 H 9.9 (4.3-11.1) K/mcL Hgb 13.2 11.4 L D (12.9-16.9) g/dL Hct 39.9 34.8 L (37.5-50.1) % Plt Count 221 193 (140-400) K/mcL Neutrophils # 8.0 7.0 (1.6-8.9) K/mcL BMP 12/26/18 12/27/18 23:48 07:01 Sodium 134 L 136 Potassium 4.2 4.0 Chloride 106 108 H Carbon Dioxide 22 L 22 L BUN 27 H 24 H Creatinine 1.31 H 1.32 H Glucose 243 H 209 H Calcium 8.4 L 8.1 L Cardiac Enzymes 12/26/18 Range/Units 23:48 Troponin I < 0.03 (< 0.04) ng/mL Liver Function 12/26/18 12/27/18 Range/Units 23:48 07:01 Total Bilirubin 0.2 L 0.2 L (0.3-1.0) mg/dL Direct Bilirubin 0.0 (0.0-0.2) mg/dL AST 12 L 9 L (13-39) Units/L ALT 8 8 (7-52) Units/L Alkaline Phosphatase 66 53 (34-104) Units/L Albumin 3.0 L 2.7 L (3.5-5.7) g/dL Urine 12/27/18 Range/Units 01:15 Urine Color Yellow (Yellow) Urine Clarity Clear (Clear) Urine pH 6.0 (5.0-8.0) pH Units Ur Specific [place] 1.022 (1.010-1.025) Urine Protein >=1000 H (Neg-Trace) mg/dL Urine Glucose (UA) 100 H (Normal) mg/dL - ABG Interpretation ABG results: PT/INR, D-dimer PT 10.0 Seconds (9.4-12.1) 12/26/18 23:48 - Impressions Impressions Chest X-Ray 12/26/18 23:39 IMPRESSION: No acute cardiopulmonary process D/ / Lewis Rogers / Lewis Rogers Interpreting Provider: Lewis Rogers Dissection 12/27/18 00:00 IMPRESSION: VASCULAR No evidence of an acute aortic syndrome. Heavy mixed calcified atherosclerotic plaque throughout the imaged aortoiliac system and branch vessels. Of note, there is moderate to severe luminal narrowing of the distal infrarenal abdominal aorta owing to atherosclerotic plaque, however, all of the visceral branch vessels are patent. Negative for acute pulmonary embolism. NONVASCULAR Fat stranding along the pancreas and duodenum suspicious for acute pancreatitis or duodenitis, favor the former given lack of duodenal wall thickening. 7 mm solid nodule in the right upper lobe. Recommend follow-up CT chest in 6-12 months. RECOMMENDATIONS: Fleischner Society guidelines for follow-up and management of incidentally detected pulmonary nodules: Single Solid Nodule: Nodule size equals 6-8 mm In a low-risk patient, CT at 6-12 months, then consider CT at 18-24 months. In a high-risk patient, CT at 6-12 months, then CT at 18-24 months. - Low risk patients include individuals with minimal or absent history of smoking and other known risk factors. - High risk patients include individuals with a history or smoking or known risk factors. Radiology 2017 http://pubs.rsna.org/doi/full/10.1148/radiol.[email or web address] D/ / 12/27/2018 06:49:30 Siva Mcrae / francy Interpreting Provider: Siva Mcrae Gallbladder Ultrasound 12/27/18 07:30 IMPRESSION: No cholelithiasis or acute cholecystitis. D/ / Jerome Kahn MD / Jerome Kahn MD Interpreting Provider: Jerome Kahn MD Consult Discharge Plan - Plan Referrals: Mickey Batista MD [Primary Care Provider] - (Follow up appointment has been requested. Office will call with date and time of appointment. ) (1) Acute pancreatitis Qualifiers: Pancreatitis type: unspecified pancreatitis type Acute pancreatitis complication: unspecified Qualified Code(s): K85.90 - Acute pancreatitis without necrosis or infection, unspecified (2) Type 2 diabetes mellitus Qualifiers: Diabetes mellitus fpc insulin use: unspecified fpc insulin use status Diabetes mellitus complication status: with unspecified complications Qualified Code(s): E11.8 - Type 2 diabetes mellitus with unspecified complications (3) Hypertension Qualifiers: Hypertension type: essential hypertension Qualified Code(s): I10 - Essential (primary) hypertension
[2018-12-27] MEDS: hydrALAZINE 25 MG TABLET PO SCH (21:45)
[2018-12-28] MEDS: Insulin LISPRO 300 UNITS/3 ML VIAL SQ SCH ×2 (00:24→05:51)
[2018-12-28] MEDS: 0.9 % Sodium Chloride 1,000 ML IVC SCH (03:05)
[2018-12-28 06:30] LABS: Alanine Aminotransferase 11 Units/L (7-52); Albumin 2.9 g/dL (3.5-5.7); Albumin/Globulin Ratio 1.1 (1.1-2.2); Alkaline Phosphatase 65 Units/L (34-104); Aspartate Amino Transferase 13 Units/L (13-39); BUN/Creatinine Ratio 16 (6-26); Bilirubin,Total 0.3 mg/dL (0.3-1.0); Blood Urea Nitrogen 19 mg/dL (8-23); Calcium 7.9 mg/dL (8.6-10.3); Carbon Dioxide 20 mEq/L (23-29); Chloride 109 mEq/L (98-107); Globulin 2.7 g/dL (2.4-3.5); Glucose 159 mg/dL (70-105); Lipase 505 Units/L (11-82); Osmolality,Calculated 286 (280-300); Potassium 4.3 mEq/L (3.5-5.1); Sodium 135 mEq/L (136-145); Total Protein 5.6 g/dL (6.4-8.9); eGFR For Non-African Americans > 60 (> 60)
[2018-12-28 07:23] VITALS: BP 185/73
[2018-12-28] MEDS: hydrALAZINE 25 MG TABLET PO SCH (08:24)
[2018-12-28] MEDS ORDERED: hydrALAZINE 25 MG TABLET PO SCH (09:00)
[2018-12-28] MEDS ORDERED: Aspirin 81 MG TAB.CHEW PO SCH (09:00)
--- NOTE | 2018-12-28 10:26 | Discharge Summary ---
- NOTES TO OUTPATIENT PROVIDER Notes to Outpatient Provider: Follow with PCP in one week. 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 Diamond is a 68 year old male with a past medical history of pancreatitis, diabetes, hypertension, myocardial infarction who presented to the ED with a chief complaint of abdominal pain which began 2 days ago. Initially it was 3/10 in severity, stabbing / dull pain which progressively worsened. His laboratory workup was notable for a lipase greater than 1800. U/S of RUQ showed no cholelithiasis on acute cholecystitis. Pt was admitted in the hospital and started him on IVF. Pt stated his abd pain started improving. He was started on clear liquid diet yesterday which he tolerated well. His lipase also started trending down, today @ 505. Patient is tolerating oral intake well now. He wants to go home today, does not want to wait for another day. So gave him an Rx for lab work Lipase levels in 2 days. He does have slightly elevated LDL @ 110, TG @ 243, so started him on Lipitor 20mg HS. - Time Spent with Patient Total time spent providing and/or coordinating discharge services: - Discharge Medications Prescriptions: Atorvastatin Calcium [Lipitor] 20 mg PO HS #30 tablet Hydralazine HCl 50 mg PO TID #90 tablet Home Medications: Aspirin 81 mg PO DAILY 05/29/16 [History] Carvedilol [Coreg] 6.25 mg PO BIDWM 05/29/16 [History] Losartan Potassium [Cozaar] 100 mg PO DAILY 05/29/16 [History] Ascorbate Calcium [Vitamin C] 500 mg PO DAILY 12/28/18 [History] Atorvastatin Calcium [Lipitor] 20 mg PO HS #30 tablet 12/28/18 [Rx] GlipiZIDE [Glipizide Xl] 5 mg PO DAILY 12/28/18 [History] Hydralazine HCl 50 mg PO TID #90 tablet 12/28/18 [Rx] metFORMIN [Glucophage] 500 mg PO BIDWM 12/28/18 [History] Allergies/Adverse Reactions: Allergy/AdvReac Type Severity Reaction Status Date / Time codeine Allergy Nausea Verified 12/28/18 08:48 Date of admission: 12/27/18 04:03 Primary care physician: Mickey Batista MD - Constitutional Vitals: Temp Pulse Resp BP Pulse Ox 97.7 F 75 15 185/73 97 12/28/18 07:22 12/28/18 07:22 12/28/18 07:22 12/28/18 07:22 12/28/18 08:15 General appearance: Present: A&O X 3, no acute distress, answers questions appropriately Exam: Gen: Alert, awake, Oriented to time,place and person Chest: Diminished breath sounds B/L, No wheezing, No crackles, No rales Heart: S1S2+ RRR No murmurs Abd: Soft, NT, BS +, No organomegaly Ext: No edema, pulses are palpable, No calf tenderness Neuro : Benign findings Skin: No rash. - Patient Status Disposition: Home, Self-Care Condition: Good Overall status at discharge: patient is back to baseline - Discharge Instructions Instructions: Pancreatitis (GEN), Pancreatitis (DC) Follow Up With: Mickey Batista MD [Primary Care Provider] - (Follow up appointment has been requested. Office will call with date and time of appointment. ) - Diet and Activity Activity: increase activity as tolerated Diet: advance to your usual diet, low fat, low cholesterol
== END 2018-12-28 12:53 | disposition home or self-care (01) | DRG 440 ==
LOC: EMEROOARM 22:32 → 3BNU 22:32 → SUATTDRO 12-27 04:03
PROVIDERS: ADMIT Internal Medicine; ATTEND Family Medicine

== ENCOUNTER 2021-01-30 04:19 | Observation (INO) ==
[2021-01-30] MEDS ORDERED: Naloxone 0.4 MG/ML INJ IVP PRN (07:45)
[2021-01-30] MEDS ORDERED: Ondansetron 4 MG/2 ML VIAL IVP PRN (07:45)
[2021-01-30] MEDS ORDERED: Perflutren Lipid Microsphere 1.3 ML in 0.9 % Sodium Chloride 8.7 ML IVP PRN (07:58)
[2021-01-30] MEDS ORDERED: *HR* Heparin 5,000 UNIT/ML VIAL IVP PRN ×2 (08:11)
[2021-01-30] MEDS ORDERED: Dextrose Gel 15 GM/37.5 ML TUBE PO PRN ×2 (08:13)
[2021-01-30] MEDS ORDERED: *HR* Dextrose 50 % in Water (Vial) 50 ML VIAL IVP PRN (08:13)
[2021-01-30] MEDS ORDERED: D5% in Water 1,000 ML IVC PRN (08:13)
[2021-01-30] MEDS: Furosemide 40 MG/4 ML VIAL IVP SCH ×2 (10:04→21:07)
[2021-01-30] MEDS: Heparin 25,000UNIT/250ML 1/2NS 25,000 UNIT/250 ML IV.SOLN IVC SCH (11:22)
[2021-01-30] MEDS: Insulin LISPRO 300 UNITS/3 ML VIAL SUBQ SCH ×3 (14:29→21:08)
[2021-01-30] MEDS: amLODIPine 5 MG TABLET PO SCH (16:20)
[2021-01-30] MEDS: carvediloL 6.25 MG TABLET PO SCH (16:20)
[2021-01-30] MEDS: hydrALAZINE 25 MG TABLET PO SCH ×2 (16:22→23:35)
[2021-01-30] MEDS: Acetaminophen 325 MG TABLET PO PRN (23:50)
[2021-01-31 01:32] LABS: Hematocrit 32.9 % (37.5-50.1); Hemoglobin 10.6 g/dL (12.9-16.9); Mean Corpuscular HGB Conc 32.2 g/dL (31.6-35.5); Mean Corpuscular Volume 86.8 fL (83.0-100.0); Mean Platelet Volume 10.6 fL (9.4-12.4); Platelet Count 255 K/mcL (140-400); Red Blood Count 3.79 M/mcL (4.19-5.50); Red Cell Distribution Width 15.1 % (11.5-14.5); White Blood Count 8.5 K/mcL (4.3-11.1)
[2021-01-31 01:56] LABS: Calcium 8.3 mg/dL (8.6-10.3); Magnesium 1.6 mg/dL (1.6-2.6); Potassium 3.4 mEq/L (3.5-5.1)
[2021-01-31] MEDS: Fenofibrate 54 MG TABLET PO SCH (09:17)
[2021-01-31] MEDS: Furosemide 40 MG/4 ML VIAL IVP SCH ×2 (09:17→19:43)
[2021-01-31] MEDS: Aspirin 81 MG TAB.CHEW PO SCH (09:17)
[2021-01-31] MEDS: amLODIPine 5 MG TABLET PO SCH (09:18)
[2021-01-31] MEDS: hydrALAZINE 25 MG TABLET PO SCH ×3 (09:18→23:06)
[2021-01-31] MEDS: Insulin LISPRO 300 UNITS/3 ML VIAL SUBQ SCH ×4 (09:18→19:42)
[2021-01-31] MEDS: carvediloL 6.25 MG TABLET PO SCH ×2 (09:18→15:44)
[2021-01-31] MEDS ORDERED: Insulin Human Regular 20 UNIT in 0.9 % Sodium Chloride 10 ML IV ONE (11:59)
[2021-01-31] MEDS: Heparin 25,000UNIT/250ML 1/2NS 25,000 UNIT/250 ML IV.SOLN IVC SCH (12:42)
[2021-01-31] MEDS: Acetaminophen 325 MG TABLET PO PRN (19:53)
[2021-02-01 01:49] LABS: Basophils # 0.1 K/mcL (0.0-0.2); Basophils % 1.1 %; Eosinophils # 0.2 K/mcL (0.0-0.6); Eosinophils % 2.5 %; Hematocrit 37.3 % (37.5-50.1); Hemoglobin 11.7 g/dL (12.9-16.9); Immature Granulocytes % 0.4 % (0-4); Lymphocytes % 22.5 %; Mean Corpuscular HGB Conc 31.4 g/dL (31.6-35.5); Mean Corpuscular Hemoglobin 28.1 pg (28.0-33.3); Mean Corpuscular Volume 89.7 fL (83.0-100.0); Mean Platelet Volume 10.7 fL (9.4-12.4); Monocytes # 1.2 K/mcL (0.0-1.3); Monocytes % 13.4 %; Neutrophils # 5.4 K/mcL (1.6-8.9); Platelet Count 273 K/mcL (140-400); Red Blood Count 4.16 M/mcL (4.19-5.50); Red Cell Distribution Width 14.8 % (11.5-14.5); Segmented Neutrophils % 60.1 %
[2021-02-01 02:11] LABS: Calcium 8.9 mg/dL (8.6-10.3); Phosphorous 4.2 mg/dL (2.7-4.5); Potassium 4.5 mEq/L (3.5-5.1)
[2021-02-01] MEDS: Insulin LISPRO 300 UNITS/3 ML VIAL SUBQ SCH ×2 (08:11→11:32)
[2021-02-01] MEDS: carvediloL 6.25 MG TABLET PO SCH (08:13)
[2021-02-01] MEDS: hydrALAZINE 25 MG TABLET PO SCH (08:13)
[2021-02-01] MEDS: Albumin 25% 25gram/100mL 25 GM/100 ML IV.SOLN IVC SCH ×2 (10:29→12:25)
[2021-02-01] MEDS: Fenofibrate 54 MG TABLET PO SCH (10:32)
[2021-02-01] MEDS: Aspirin 81 MG TAB.CHEW PO SCH (10:32)
[2021-02-01] MEDS: amLODIPine 5 MG TABLET PO SCH (10:32)
[2021-02-01 11:28] VITALS: BP 154/77
== END 2021-02-01 13:43 | disposition home or self-care (01) ==
LOC: 2ANU
PROVIDERS: ADMIT Internal Medicine; ATTEND Internal Medicine

== ENCOUNTER 2021-04-11 01:13 | Inpatient (IN) ==
[2021-04-11] MEDS ORDERED: Ondansetron 4 MG/2 ML VIAL IVP PRN (02:16)
[2021-04-11] MEDS ORDERED: Naloxone 0.4 MG/ML INJ IVP PRN (02:16)
[2021-04-11] MEDS ORDERED: *HR* Heparin 5,000 UNIT/ML VIAL IVP PRN ×2 (02:19)
[2021-04-11] MEDS ORDERED: Heparin 25,000UNIT/250ML 1/2NS 25,000 UNIT/250 ML IV.SOLN IVC SCH (02:30)
[2021-04-11 02:54] LABS: Basophils # 0.1 K/mcL (0.0-0.2); Eosinophils # 0.3 K/mcL (0.0-0.6); Eosinophils % 2.8 %; Hematocrit 36.5 % (37.5-50.1); Heparin anti-factor XA UFH 0.49 IU/mL (0.30-0.70); Immature Granulocytes % 0.2 % (0-4); Lymphocytes # 2.1 K/mcL (0.6-4.6); Mean Corpuscular HGB Conc 32.9 g/dL (31.6-35.5); Mean Corpuscular Hemoglobin 28.1 pg (28.0-33.3); Mean Corpuscular Volume 85.5 fL (83.0-100.0); Mean Platelet Volume 10.8 fL (9.4-12.4); Monocytes # 1.1 K/mcL (0.0-1.3); Monocytes % 11.2 %; Neutrophils # 6.3 K/mcL (1.6-8.9); Platelet Count 288 K/mcL (140-400); Prothrombin Time 11.7 Seconds (9.4-12.1); Red Blood Count 4.27 M/mcL (4.19-5.50); Red Cell Distribution Width 14.5 % (11.5-14.5); Segmented Neutrophils % 63.8 %; White Blood Count 9.8 K/mcL (4.3-11.1)
[2021-04-11] MEDS ORDERED: *HR* Dextrose 50 % in Water (Vial) 50 ML VIAL IVP PRN (03:00)
[2021-04-11] MEDS ORDERED: Dextrose Gel 15 GM/37.5 ML TUBE PO PRN ×2 (03:00)
[2021-04-11] MEDS ORDERED: D5% in Water 1,000 ML IVC PRN (03:00)
[2021-04-11 03:07] LABS: Calcium 8.6 mg/dL (8.6-10.3); Potassium 3.6 mEq/L (3.5-5.1)
[2021-04-11] MEDS: Insulin LISPRO 300 UNITS/3 ML VIAL SUBQ SCH ×5 (03:13→23:32)
[2021-04-11 06:10] LABS: Troponin I 0.05 ng/mL (< 0.04)
[2021-04-11 06:26] LABS: Thyroid Stimulating Hormone 3.588 mcIU/mL (0.340-5.600)
[2021-04-11] MEDS ORDERED: Perflutren Lipid Microsphere 1.3 ML in 0.9 % Sodium Chloride 8.7 ML IVP PRN (08:28)
[2021-04-11] MEDS: Aspirin 81 MG TAB.CHEW PO SCH (09:48)
[2021-04-11] MEDS: amLODIPine 5 MG TABLET PO SCH (09:48)
[2021-04-11] MEDS: 0.9 % Sodium Chloride 1,000 ML IVC SCH (12:12)
[2021-04-11] MEDS ORDERED: 0.9 % Sodium Chloride 2,000 ML ONE (16:34)
[2021-04-11] MEDS ORDERED: ISOVUE-370 200 ML INFUS..BTL ONE (16:34)
[2021-04-11] MEDS ORDERED: *HR* Heparin 10,000 UNIT/10 ML VIAL ONE ×2 (16:34→18:00)
[2021-04-11] MEDS ORDERED: Heparin 1,000 UNITS/500 mL 500 ML ONE (16:34)
[2021-04-11] MEDS ORDERED: Nitroglycerin 1,000 MCG/5 ML VIAL IV ONE (16:34)
[2021-04-11] MEDS ORDERED: *HR* Midazolam HCl 2 MG/2 ML VIAL ONE (16:44)
[2021-04-11] MEDS ORDERED: *HR* FentaNYL (PF) 100 MCG/2 ML VIAL ONE (16:44)
[2021-04-11] MEDS: carvediloL 6.25 MG TABLET PO SCH (18:20)
[2021-04-12] MEDS: 0.9 % Sodium Chloride 1,000 ML IVC SCH (02:07)
[2021-04-12] MEDS: *HR* Heparin 5,000 UNIT/ML VIAL SQ SCH ×2 (06:11→17:49)
[2021-04-12] MEDS: Acetaminophen 325 MG TABLET PO PRN (06:46)
[2021-04-12 07:08] LABS: Hematocrit 35.5 % (37.5-50.1); Hemoglobin 11.2 g/dL (12.9-16.9); Mean Corpuscular HGB Conc 31.5 g/dL (31.6-35.5); Mean Corpuscular Hemoglobin 27.5 pg (28.0-33.3); Mean Platelet Volume 10.6 fL (9.4-12.4); Platelet Count 292 K/mcL (140-400); Red Blood Count 4.08 M/mcL (4.19-5.50); Red Cell Distribution Width 14.4 % (11.5-14.5); White Blood Count 8.5 K/mcL (4.3-11.1)
[2021-04-12 07:37] LABS: Calcium 8.5 mg/dL (8.6-10.3); Potassium 3.7 mEq/L (3.5-5.1)
[2021-04-12] MEDS: Aspirin 81 MG TAB.CHEW PO SCH (08:22)
[2021-04-12] MEDS: amLODIPine 5 MG TABLET PO SCH (08:22)
[2021-04-12] MEDS: carvediloL 6.25 MG TABLET PO SCH ×2 (08:22→17:52)
[2021-04-12] MEDS: Insulin LISPRO 300 UNITS/3 ML VIAL SUBQ SCH ×4 (08:29→20:21)
[2021-04-12] MEDS ORDERED: Lidocaine Viscous Oral Soln 15 ML SOLUTION MM PRN (12:54)
[2021-04-12] MEDS ORDERED: 0.9 % Sodium Chloride 500 ML IVC ONE (12:54)
[2021-04-12] MEDS ORDERED: *HR* Midazolam HCl 2 MG/2 ML VIAL IVP PRN (12:55)
[2021-04-12] MEDS ORDERED: *HR* Midazolam HCl 5 MG/5 ML VIAL IVP ONE (13:07)
[2021-04-12] MEDS: *HR* FentaNYL (PF) 100 MCG/2 ML VIAL IVP PRN ×4 (13:20→13:30)
[2021-04-12] MEDS: *HR* Midazolam HCl 5 MG/5 ML VIAL IVP ONE ×3 (13:23→13:30)
[2021-04-13 01:57] LABS: Hemoglobin 10.1 g/dL (12.9-16.9); Mean Corpuscular HGB Conc 32.6 g/dL (31.6-35.5); Mean Corpuscular Volume 85.9 fL (83.0-100.0); Mean Platelet Volume 10.9 fL (9.4-12.4); Platelet Count 241 K/mcL (140-400); Red Blood Count 3.61 M/mcL (4.19-5.50); Red Cell Distribution Width 14.2 % (11.5-14.5); White Blood Count 8.9 K/mcL (4.3-11.1)
[2021-04-13 02:18] LABS: Calcium 8.1 mg/dL (8.6-10.3); Potassium 3.9 mEq/L (3.5-5.1)
[2021-04-13] MEDS: *HR* Heparin 5,000 UNIT/ML VIAL SQ SCH ×2 (05:32→17:13)
[2021-04-13] MEDS: Aspirin 81 MG TAB.CHEW PO SCH (09:57)
[2021-04-13] MEDS: amLODIPine 5 MG TABLET PO SCH (09:57)
[2021-04-13] MEDS: carvediloL 6.25 MG TABLET PO SCH ×2 (09:57→17:13)
[2021-04-13] MEDS: Insulin LISPRO 300 UNITS/3 ML VIAL SUBQ SCH ×4 (09:57→22:00)
[2021-04-14 06:08] LABS: Hemoglobin 9.9 g/dL (12.9-16.9); Mean Corpuscular HGB Conc 31.9 g/dL (31.6-35.5); Mean Corpuscular Hemoglobin 27.4 pg (28.0-33.3); Mean Corpuscular Volume 85.9 fL (83.0-100.0); Platelet Count 230 K/mcL (140-400); Red Blood Count 3.61 M/mcL (4.19-5.50); Red Cell Distribution Width 14.4 % (11.5-14.5); White Blood Count 8.1 K/mcL (4.3-11.1)
[2021-04-14 06:15] LABS: Calcium 8.3 mg/dL (8.6-10.3); Potassium 4.2 mEq/L (3.5-5.1)
[2021-04-14] MEDS: *HR* Heparin 5,000 UNIT/ML VIAL SQ SCH ×2 (06:38→16:02)
[2021-04-14] MEDS: Insulin LISPRO 300 UNITS/3 ML VIAL SUBQ SCH ×4 (08:58→21:03)
[2021-04-14] MEDS: carvediloL 6.25 MG TABLET PO SCH ×2 (08:59→16:01)
[2021-04-14] MEDS: Aspirin 81 MG TAB.CHEW PO SCH (08:59)
[2021-04-14] MEDS: amLODIPine 5 MG TABLET PO SCH (09:00)
[2021-04-14] MEDS: Acetaminophen 325 MG TABLET PO PRN (13:09)
[2021-04-15 05:00] LABS: Basophils # 0.1 K/mcL (0.0-0.2); Basophils % 0.9 %; Eosinophils # 0.3 K/mcL (0.0-0.6); Eosinophils % 3.7 %; Hematocrit 33.5 % (37.5-50.1); Hemoglobin 10.5 g/dL (12.9-16.9); Immature Granulocytes % 0.5 % (0-4); Lymphocytes # 1.4 K/mcL (0.6-4.6); Lymphocytes % 16.5 %; Mean Corpuscular HGB Conc 31.3 g/dL (31.6-35.5); Mean Corpuscular Hemoglobin 27.3 pg (28.0-33.3); Mean Corpuscular Volume 87.2 fL (83.0-100.0); Mean Platelet Volume 11.3 fL (9.4-12.4); Monocytes # 0.8 K/mcL (0.0-1.3); Monocytes % 9.2 %; Neutrophils # 5.9 K/mcL (1.6-8.9); Platelet Count 257 K/mcL (140-400); Red Blood Count 3.84 M/mcL (4.19-5.50); Red Cell Distribution Width 14.4 % (11.5-14.5); Segmented Neutrophils % 69.2 %; White Blood Count 8.5 K/mcL (4.3-11.1)
[2021-04-15 05:22] LABS: Calcium 8.7 mg/dL (8.6-10.3); Magnesium 1.9 mg/dL (1.6-2.6)
[2021-04-15] MEDS: *HR* Heparin 5,000 UNIT/ML VIAL SQ SCH ×2 (06:38→16:57)
[2021-04-15] MEDS: Insulin LISPRO 300 UNITS/3 ML VIAL SUBQ SCH ×4 (07:16→21:29)
[2021-04-15] MEDS: amLODIPine 5 MG TABLET PO SCH (07:33)
[2021-04-15] MEDS: carvediloL 6.25 MG TABLET PO SCH ×2 (07:33→16:57)
[2021-04-15] MEDS: Aspirin 81 MG TAB.CHEW PO SCH (07:33)
[2021-04-15] MEDS ORDERED: Haloperidol Lactate 5 MG/ML VIAL ONE (11:12)
[2021-04-15] MEDS ORDERED: Lidocaine Viscous Oral Soln 15 ML SOLUTION MM PRN (12:14)
[2021-04-15] MEDS ORDERED: Heparin 1,000 UNITS/500 mL 500 ML ONE (12:20)
[2021-04-15] MEDS ORDERED: Lidocaine -MPF 2% 2 ML VIAL ONE (12:20)
[2021-04-15] MEDS ORDERED: *HR* Midazolam HCl 2 MG/2 ML VIAL ONE (12:29)
[2021-04-15] MEDS ORDERED: *HR* FentaNYL (PF) 100 MCG/2 ML VIAL IVP PRN (12:29)
[2021-04-15] MEDS ORDERED: Nitroglycerin 0.4 MG TAB.SUBL SL PRN (12:30)
[2021-04-15] MEDS ORDERED: Naloxone 0.4 MG/ML INJ IVP PRN (12:30)
[2021-04-15] MEDS ORDERED: Ondansetron 4 MG/2 ML VIAL IVP PRN (12:30)
[2021-04-15] MEDS ORDERED: Albuterol 2.5 MG/3 ML NEBULIZER IH PRN (12:30)
[2021-04-15] MEDS ORDERED: CeFAZolin Syr 2,000MG/20 ML 2,000 MG/20 ML SYRINGE IVPB ONE (17:02)
[2021-04-15 17:40] LABS: Estimated Average Glucose 189 mg/dl; Hemoglobin A1C 8.2 %
[2021-04-15 17:50] LABS: Chol/HDL Ratio 4.1 (0-4.9)
[2021-04-15] MEDS ORDERED: *HR* Phenylephrine 10 MG/ML VIAL IVC ONE (18:33)
[2021-04-15] MEDS: Chlorhexidine Rinse 15 ML MOUTHWASH MM SCH (21:29)
[2021-04-16 04:21] LABS: Basophils # 0.1 K/mcL (0.0-0.2); Eosinophils # 0.3 K/mcL (0.0-0.6); Eosinophils % 3.5 %; Hematocrit 28.5 % (37.5-50.1); Hemoglobin 9.2 g/dL (12.9-16.9); Immature Granulocytes % 0.4 % (0-4); Lymphocytes # 1.6 K/mcL (0.6-4.6); Lymphocytes % 18.8 %; Mean Corpuscular HGB Conc 32.3 g/dL (31.6-35.5); Mean Corpuscular Hemoglobin 27.4 pg (28.0-33.3); Mean Corpuscular Volume 84.8 fL (83.0-100.0); Mean Platelet Volume 11.2 fL (9.4-12.4); Monocytes % 11.8 %; Neutrophils # 5.4 K/mcL (1.6-8.9); Platelet Count 244 K/mcL (140-400); Red Blood Count 3.36 M/mcL (4.19-5.50); Red Cell Distribution Width 14.2 % (11.5-14.5); Segmented Neutrophils % 64.5 %; White Blood Count 8.4 K/mcL (4.3-11.1)
[2021-04-16 04:40] LABS: Calcium 8.1 mg/dL (8.6-10.3); Potassium 4.1 mEq/L (3.5-5.1)
[2021-04-16] MEDS: *HR* Heparin 5,000 UNIT/ML VIAL SQ SCH (05:02)
[2021-04-16] MEDS: carvediloL 6.25 MG TABLET PO SCH (05:58)
[2021-04-16] MEDS: Chlorhexidine Rinse 15 ML MOUTHWASH MM SCH ×2 (05:58→20:18)
[2021-04-16] MEDS ORDERED: CeFAZolin Syr 2,000MG/20 ML 2,000 MG/20 ML SYRINGE IVPB ONE (06:00)
[2021-04-16] MEDS ORDERED: NiCARdipine 2.5 MG/10 ML Syringe IVPB ONE (06:53)
[2021-04-16] MEDS ORDERED: *HR* Midazolam HCl 5 MG/5 ML VIAL IVP ONE (06:54)
[2021-04-16] MEDS ORDERED: *HR* FentaNYL (PF) 1,000 MCG/20 ML VIAL ONE (06:54)
[2021-04-16] MEDS ORDERED: *HR* Propofol 200 MG/20 ML VIAL IVP ONE (06:55)
[2021-04-16] MEDS ORDERED: Lidocaine 2% Syringe 100 MG/5 ML ONE (07:00)
[2021-04-16] MEDS ORDERED: Famotidine 20 MG/2 ML VIAL ONE (07:00)
[2021-04-16] MEDS ORDERED: *HR* Magnesium Sulfate 1 GM/2 ML VIAL ONE (07:00)
[2021-04-16] MEDS ORDERED: Tranexamic Acid 1,000 MG/10 ML VIAL ONE (07:00)
[2021-04-16] MEDS ORDERED: *HR* Rocuronium Bromide 50 MG/5 ML VIAL ONE ×3 (07:00→11:04)
[2021-04-16] MEDS ORDERED: Norepinephrine 4 MG in 0.9 % Sodium Chloride 250 ML IVC PRN (07:45)
[2021-04-16] MEDS ORDERED: Dextrose 50 % in Water (Vial) 30 ML, Sodium Bicarbonate 20 MEQ, Lidocaine 1% 5 ML, Insu... TH ONE ×3 (07:45)
[2021-04-16] MEDS ORDERED: Heparin 15,000 UNIT in 0.9 % Sodium Chloride 500 ML IV ONE (07:45)
[2021-04-16] MEDS ORDERED: Dextrose 50 % in Water (Vial) 30 ML, Sodium Bicarbonate 20 MEQ, Potassium Chloride 15 M... TH ONE (07:45)
[2021-04-16 07:57] LABS: ABG Base Excess -1 mEq/L (-2 to 3); ABG Chloride 107 mEq/L (98-107); ABG Glucose 234 mg/dL (60-95); ABG HCO3 23 mEq/L (21-27); ABG Ionized Calcium 1.18 mmol/L (1.15-1.35); ABG Oxygen Saturation 96 % (95-98); ABG PCO2 35 mmHg (35-45); ABG PH 7.42 pH Units (7.32-7.45); ABG PO2 78 mmHg (85-104); ABG TCO2 24 mEq/L (20-26)
[2021-04-16 09:53] LABS: ABG Base Excess -4 mEq/L (-2 to 3); ABG Chloride 108 mEq/L (98-107); ABG Glucose 219 mg/dL (60-95); ABG HCO3 21 mEq/L (21-27); ABG Ionized Calcium 1.05 mmol/L (1.15-1.35); ABG Oxygen Saturation 100 % (95-98); ABG PCO2 37 mmHg (35-45); ABG PH 7.37 pH Units (7.32-7.45); ABG PO2 171 mmHg (85-104); ABG TCO2 22 mEq/L (20-26)
[2021-04-16 11:01] LABS: ABG Base Excess 0 mEq/L (-2 to 3); ABG Chloride 104 mEq/L (98-107); ABG Glucose 287 mg/dL (60-95); ABG HCO3 25 mEq/L (21-27); ABG Ionized Calcium 1.05 mmol/L (1.15-1.35); ABG Oxygen Saturation 100 % (95-98); ABG PCO2 40 mmHg (35-45); ABG PO2 491 mmHg (85-104); ABG TCO2 26 mEq/L (20-26)
[2021-04-16] MEDS ORDERED: Calcium Gluconate 1,000 MG/10 ML VIAL ONE ×2 (11:02→12:14)
[2021-04-16] MEDS ORDERED: Protamine Sulfate 250 MG/25 ML VIAL IVP ONE (11:02)
[2021-04-16] MEDS ORDERED: Heparin 1,000 UNITS/500 mL IV.SOLN IR ONE (11:11)
[2021-04-16] MEDS ORDERED: D5% in Water 250 ML IV BAG IV ONE (11:11)
[2021-04-16] MEDS ORDERED: *HR* Heparin 10,000 UNIT/10 ML VIAL IR ONE (11:11)
[2021-04-16] MEDS ORDERED: Lidocaine 2% Syringe 100 MG/5 ML IVP ONE (11:11)
[2021-04-16] MEDS ORDERED: Mannitol 25% vial 12.5 GM/50 ML VIAL IVPB ONE (11:11)
[2021-04-16] MEDS ORDERED: Tranexamic Acid 1,000 MG/10 ML VIAL IR ONE (11:11)
[2021-04-16] MEDS ORDERED: *HR* Magnesium Sulfate 2 GM/50 ML PIGGYBACK IVPB ONE (11:11)
[2021-04-16] MEDS ORDERED: *HR* Phenylephrine 10 MG/ML VIAL IVC ONE (11:11)
[2021-04-16] MEDS ORDERED: Albumin Human 25% 25 GM/100 ML IV.SOLN IVPB ONE (11:11)
[2021-04-16 11:23] LABS: ABG Base Excess -2 mEq/L (-2 to 3); ABG Chloride 102 mEq/L (98-107); ABG Glucose 240 mg/dL (60-95); ABG HCO3 23 mEq/L (21-27); ABG Ionized Calcium 1.23 mmol/L (1.15-1.35); ABG Oxygen Saturation 100 % (95-98); ABG PCO2 37 mmHg (35-45); ABG PO2 616 mmHg (85-104); ABG TCO2 24 mEq/L (20-26)
[2021-04-16 11:28] LABS: ABG Base Excess -4 mEq/L (-2 to 3); ABG Chloride 103 mEq/L (98-107); ABG Glucose 240 mg/dL (60-95); ABG HCO3 21 mEq/L (21-27); ABG Ionized Calcium 1.16 mmol/L (1.15-1.35); ABG Oxygen Saturation 100 % (95-98); ABG PCO2 38 mmHg (35-45); ABG PH 7.35 pH Units (7.32-7.45); ABG PO2 608 mmHg (85-104); ABG TCO2 23 mEq/L (20-26)
[2021-04-16] MEDS ORDERED: Albumin Human 5% 12.5 GM/250 ML IV.SOLN ONE ×3 (11:52→12:41)
[2021-04-16] MEDS: amLODIPine 5 MG TABLET PO SCH (12:00)
[2021-04-16] MEDS: Insulin LISPRO 300 UNITS/3 ML VIAL SUBQ SCH (12:00)
[2021-04-16] MEDS: Aspirin 81 MG TAB.CHEW PO SCH (12:00)
[2021-04-16] MEDS ORDERED: Protamine Sulfate 50 MG/5 ML VIAL IVP ONE (12:13)
[2021-04-16 12:15] LABS: ABG Base Excess -4 mEq/L (-2 to 3); ABG Chloride 111 mEq/L (98-107); ABG Glucose 185 mg/dL (60-95); ABG HCO3 21 mEq/L (21-27); ABG Ionized Calcium 0.94 mmol/L (1.15-1.35); ABG Oxygen Saturation 99 % (95-98); ABG PCO2 37 mmHg (35-45); ABG PH 7.36 pH Units (7.32-7.45); ABG PO2 152 mmHg (85-104); ABG TCO2 22 mEq/L (20-26)
[2021-04-16] MEDS ORDERED: Insulin Regular, Human 100 UNIT/ML IV PRN (12:23)
[2021-04-16] MEDS ORDERED: Potassium Chloride 40 MEQ/200 ML BAG IVPB PRN (12:23)
[2021-04-16] MEDS ORDERED: *HR* Dextrose 50 % in Water (Vial) 50 ML VIAL IVP PRN (12:23)
[2021-04-16] MEDS ORDERED: Albumin Human 5% 12.5 GM/250 ML IV.SOLN IVPB PRN (12:24)
[2021-04-16] MEDS ORDERED: Acetaminophen 650 MG RECTAL SUPP RC PRN (12:24)
[2021-04-16] MEDS ORDERED: Calcium Gluconate 1gm/50mL 1 GM/50 ML BAG IVPB PRN ×2 (12:24→15:45)
[2021-04-16 12:29] LABS: ABG Base Excess -4 mEq/L (-2 to 3); ABG Chloride 108 mEq/L (98-107); ABG Glucose 172 mg/dL (60-95); ABG HCO3 21 mEq/L (21-27); ABG Ionized Calcium 1.13 mmol/L (1.15-1.35); ABG Oxygen Saturation 99 % (95-98); ABG PCO2 35 mmHg (35-45); ABG PH 7.39 pH Units (7.32-7.45); ABG PO2 149 mmHg (85-104); ABG TCO2 22 mEq/L (20-26)
[2021-04-16] MEDS: Norepinephrine 4 MG/254 ML IV.SOLN IVC SCH (12:55)
[2021-04-16 13:12] LABS: ABG Base Excess -2 mEq/L (-2 to 3); ABG HCO3 24 mEq/L (21-27); ABG Oxygen Saturation 87 % (95-98); ABG PCO2 48 mmHg (35-45); ABG PH 7.31 pH Units (7.32-7.45); ABG PO2 58 mmHg (85-104); ABG TCO2 26 mEq/L (20-26); Blood Gas VT 500 cc
[2021-04-16 13:21] LABS: Basophils # 0.1 K/mcL (0.0-0.2); Basophils % 0.7 %; Eosinophils # 0.1 K/mcL (0.0-0.6); Eosinophils % 0.8 %; Hematocrit 26.2 % (37.5-50.1); Hemoglobin 8.3 g/dL (12.9-16.9); Immature Granulocytes % 0.8 % (0-4); Lymphocytes % 9.4 %; Mean Corpuscular HGB Conc 31.7 g/dL (31.6-35.5); Mean Corpuscular Hemoglobin 27.9 pg (28.0-33.3); Mean Corpuscular Volume 88.2 fL (83.0-100.0); Mean Platelet Volume 10.5 fL (9.4-12.4); Monocytes # 1.1 K/mcL (0.0-1.3); Monocytes % 10.6 %; Neutrophils # 8.2 K/mcL (1.6-8.9); Platelet Count 102 K/mcL (140-400); Red Blood Count 2.97 M/mcL (4.19-5.50); Red Cell Distribution Width 14.3 % (11.5-14.5); Segmented Neutrophils % 77.7 %
[2021-04-16 13:27] LABS: INR 1.4; Prothrombin Time 15.8 Seconds (9.4-12.1); White Blood Count 10.6 K/mcL (4.3-11.1)
[2021-04-16 13:30] LABS: Activated Partial Thrombo Time 34.5 Seconds (26.0-36.0)
[2021-04-16 13:37] LABS: Calcium 7.9 mg/dL (8.6-10.3); Potassium 3.6 mEq/L (3.5-5.1)
[2021-04-16] MEDS: 0.9 % Sodium Chloride 1,000 ML IVC SCH (13:45)
[2021-04-16] MEDS: Pantoprazole 40 MG VIAL IVP SCH (14:24)
[2021-04-16] MEDS: niCARdipine 20 MG/200 ML MLS IVC SCH ×4 (14:31→23:42)
[2021-04-16] MEDS: CeFAZolin 2 GM/120 ML BAG IVPB SCH ×2 (15:40→23:12)
[2021-04-16 17:16] LABS: ABG Base Excess -2 mEq/L (-2 to 3); ABG HCO3 27 mEq/L (21-27); ABG Oxygen Saturation 85 % (95-98); ABG PCO2 63 mmHg (35-45); ABG PH 7.24 pH Units (7.32-7.45); ABG PO2 60 mmHg (85-104); ABG TCO2 29 mEq/L (20-26); Blood Gas Modality ASSIST CONTROL; Blood Gas VT 500 cc
[2021-04-16 17:25] LABS: Hemoglobin 10.2 g/dL (12.9-16.9)
[2021-04-16 17:41] LABS: Calcium 8.7 mg/dL (8.6-10.3); Potassium 4.1 mEq/L (3.5-5.1)
[2021-04-16 21:14] LABS: ABG Base Excess -1 mEq/L (-2 to 3); ABG HCO3 25 mEq/L (21-27); ABG Oxygen Saturation 87 % (95-98); ABG PCO2 45 mmHg (35-45); ABG PH 7.35 pH Units (7.32-7.45); ABG PO2 56 mmHg (85-104); ABG TCO2 26 mEq/L (20-26); Blood Gas VT 500 cc
[2021-04-16 21:58] LABS: ABG Base Excess -1 mEq/L (-2 to 3); ABG HCO3 24 mEq/L (21-27); ABG Oxygen Saturation 87 % (95-98); ABG PCO2 43 mmHg (35-45); ABG PH 7.36 pH Units (7.32-7.45); ABG PO2 56 mmHg (85-104); ABG TCO2 26 mEq/L (20-26); Blood Gas Pressure Support 10 cm H2O
[2021-04-16 23:21] LABS: ABG Base Excess -1 mEq/L (-2 to 3); ABG HCO3 24 mEq/L (21-27); ABG Oxygen Saturation 88 % (95-98); ABG PCO2 43 mmHg (35-45); ABG PH 7.36 pH Units (7.32-7.45); ABG PO2 57 mmHg (85-104); ABG TCO2 25 mEq/L (20-26); Blood Gas Pressure Support 10 cm H2O
[2021-04-16] MEDS: *HR* OxyCODONE/APAP 5/325 TABLET PO PRN (23:36)
[2021-04-16] MEDS: *HR* FentaNYL (PF) 100 MCG/2 ML VIAL IVP PRN (23:37)
[2021-04-17] MEDS: *HR* FentaNYL (PF) 100 MCG/2 ML VIAL IVP PRN ×2 (01:46→10:15)
[2021-04-17] MEDS: niCARdipine 20 MG/200 ML MLS IVC SCH ×6 (02:52→23:41)
[2021-04-17 03:21] LABS: Basophils % 0.2 %; Hematocrit 29.2 % (37.5-50.1); Hemoglobin 9.4 g/dL (12.9-16.9); Immature Granulocytes % 0.5 % (0-4); Lymphocytes # 1.3 K/mcL (0.6-4.6); Lymphocytes % 5.7 %; Mean Corpuscular HGB Conc 32.2 g/dL (31.6-35.5); Mean Corpuscular Hemoglobin 27.9 pg (28.0-33.3); Mean Corpuscular Volume 86.6 fL (83.0-100.0); Mean Platelet Volume 11.2 fL (9.4-12.4); Monocytes # 2.5 K/mcL (0.0-1.3); Monocytes % 11.4 %; Neutrophils # 18.1 K/mcL (1.6-8.9); Platelet Count 162 K/mcL (140-400); Red Blood Count 3.37 M/mcL (4.19-5.50); Red Cell Distribution Width 14.2 % (11.5-14.5); Segmented Neutrophils % 82.2 %
[2021-04-17 03:25] LABS: Prothrombin Time 11.1 Seconds (9.4-12.1)
[2021-04-17 03:28] LABS: Activated Partial Thrombo Time 28.5 Seconds (26.0-36.0)
[2021-04-17 03:40] LABS: Calcium 8.3 mg/dL (8.6-10.3); Magnesium 2.6 mg/dL (1.6-2.6); Potassium 4.4 mEq/L (3.5-5.1)
[2021-04-17 03:46] LABS: Platelet Estimate Normal (Normal)
[2021-04-17 04:01] LABS: ABG Base Excess -3 mEq/L (-2 to 3); ABG HCO3 23 mEq/L (21-27); ABG Oxygen Saturation 81 % (95-98); ABG PCO2 46 mmHg (35-45); ABG PH 7.31 pH Units (7.32-7.45); ABG PO2 50 mmHg (85-104); ABG TCO2 25 mEq/L (20-26); Blood Gas VT 500 cc
[2021-04-17] MEDS: FentaNYL (PF) 1,000 MCG/100 ML IV.SOLN IVC SCH (04:41)
[2021-04-17] MEDS ORDERED: Lidocaine -MPF 2% 5 ML VIAL ONE (04:47)
[2021-04-17] MEDS: *HR* OxyCODONE/APAP 5/325 TABLET PO PRN ×4 (05:35→21:04)
[2021-04-17] MEDS: Aspirin Enteric Coated 81 MG Tablet PO SCH (07:30)
[2021-04-17] MEDS: carvediloL 6.25 MG TABLET PO SCH ×2 (07:31→16:30)
[2021-04-17] MEDS: Pantoprazole 40 MG VIAL IVP SCH (07:48)
[2021-04-17] MEDS: Furosemide 20 MG/2 ML VIAL IVP SCH ×2 (07:49→21:04)
[2021-04-17] MEDS: Chlorhexidine Rinse 15 ML MOUTHWASH MM SCH ×2 (07:49→21:03)
[2021-04-17 09:13] LABS: ABG Base Excess -2 mEq/L (-2 to 3); ABG HCO3 23 mEq/L (21-27); ABG Oxygen Saturation 84 % (95-98); ABG PCO2 43 mmHg (35-45); ABG PH 7.35 pH Units (7.32-7.45); ABG PO2 51 mmHg (85-104); ABG TCO2 25 mEq/L (20-26); Blood Gas Modality cpap; Blood Gas Pressure Support 8 cm H2O
[2021-04-17] MEDS ORDERED: Furosemide 20 MG/2 ML VIAL IVP ONE (09:42)
[2021-04-17] MEDS: Budesonide/Formoterol 160/4.5 1 PUFF INH IH SCH ×2 (11:31→20:24)
[2021-04-17] MEDS: Norepinephrine 4 MG/254 ML IV.SOLN IVC SCH (17:10)
[2021-04-17] MEDS: Insulin LISPRO 300 UNITS/3 ML VIAL SUBQ SCH ×2 (17:14→21:04)
[2021-04-17] MEDS: Cefepime HCl 2,000 MG in Water for inj. (sterile) 20 ML IVP SCH (17:26)
[2021-04-17] MEDS ORDERED: Water for inj. (sterile) 20 ML IV ONE (17:26)
[2021-04-17] MEDS: 0.9 % Sodium Chloride 1,000 ML IVC SCH (18:15)
[2021-04-17 18:49] LABS: Bilirubin,Urine Negative (Negative); Blood,Urine Large (Negative); Clarity,Urine Turbid (Clear); Color,Urine Light-Yellow (Yellow); Glucose,Urine (UA) 70 mg/dL (Normal); Hyaline Casts,Urine Few per lpf (None Seen); Ketones,Urine Trace mg/dL (Negative); Leukocyte Esterase,Urine Negative (Negative); Mucus,Urine Few per lpf (None-Few); Nitrite,Urine Negative (Negative); Protein,Urine >=300 mg/dL (Neg-Trace); RBC,Urine TNTC per hpf (0-3); Specific Gravity,Urine 1.023 (1.010-1.025); Squamous Epithelial Cell,Urine Few per hpf (None-Few); Urobilinogen,Urine Normal (Normal); WBC,Urine 15-30 per hpf (0-3)
[2021-04-17 18:51] LABS: Sodium, Urine 43.1 mEq/L
[2021-04-18] MEDS: *HR* OxyCODONE/APAP 5/325 TABLET PO PRN ×4 (02:09→20:57)
[2021-04-18] MEDS: Cefepime HCl 2,000 MG in Water for inj. (sterile) 20 ML IVP SCH (03:40)
[2021-04-18 04:11] LABS: Basophils % 0.2 %; Hematocrit 28.1 % (37.5-50.1); Hemoglobin 8.8 g/dL (12.9-16.9); Immature Granulocytes % 0.6 % (0-4); Lymphocytes # 1.1 K/mcL (0.6-4.6); Lymphocytes % 5.8 %; Mean Corpuscular HGB Conc 31.3 g/dL (31.6-35.5); Mean Corpuscular Hemoglobin 27.8 pg (28.0-33.3); Mean Corpuscular Volume 88.6 fL (83.0-100.0); Monocytes # 2.2 K/mcL (0.0-1.3); Monocytes % 11.5 %; Neutrophils # 15.4 K/mcL (1.6-8.9); Platelet Count 140 K/mcL (140-400); Red Blood Count 3.17 M/mcL (4.19-5.50); Red Cell Distribution Width 14.8 % (11.5-14.5); Segmented Neutrophils % 81.9 %; White Blood Count 18.7 K/mcL (4.3-11.1)
[2021-04-18 04:26] LABS: Calcium 8.1 mg/dL (8.6-10.3); Magnesium 2.5 mg/dL (1.6-2.6); Potassium 4.3 mEq/L (3.5-5.1)
[2021-04-18] MEDS: FentaNYL (PF) 1,000 MCG/100 ML IV.SOLN IVC SCH (04:36)
[2021-04-18] MEDS: niCARdipine 20 MG/200 ML MLS IVC SCH ×2 (04:36→15:04)
[2021-04-18] MEDS: 0.9 % Sodium Chloride 1,000 ML IVC SCH ×2 (06:03→14:03)
[2021-04-18] MEDS: Budesonide/Formoterol 160/4.5 1 PUFF INH IH SCH ×2 (07:28→20:25)
[2021-04-18] MEDS: carvediloL 6.25 MG TABLET PO SCH ×2 (07:59→16:49)
[2021-04-18] MEDS: Aspirin Enteric Coated 81 MG Tablet PO SCH (07:59)
[2021-04-18] MEDS: Furosemide 20 MG/2 ML VIAL IVP SCH ×2 (08:00→20:57)
[2021-04-18] MEDS: Pantoprazole 40 MG VIAL IVP SCH (08:00)
[2021-04-18] MEDS: Chlorhexidine Rinse 15 ML MOUTHWASH MM SCH ×2 (08:00→20:57)
[2021-04-18] MEDS: Insulin LISPRO 300 UNITS/3 ML VIAL SUBQ SCH ×4 (08:08→20:58)
[2021-04-18] MEDS: amLODIPine 5 MG TABLET PO SCH (09:35)
[2021-04-18] MEDS ORDERED: Amiodarone Premix 360 MG/200 ML BAG IVC ONE (11:41)
[2021-04-18] MEDS ORDERED: Amiodarone Premix 150 MG/100 ML BAG IVPB ONE (11:41)
[2021-04-18] MEDS: Norepinephrine 4 MG/254 ML IV.SOLN IVC SCH (15:04)
[2021-04-18] MEDS: Cefepime HCl 1,000 MG in Water for inj. (sterile) 10 ML IVP SCH (18:26)
[2021-04-18] MEDS: Amiodarone Premix 360 MG/200 ML BAG IVC SCH (18:28)
[2021-04-19] MEDS: Amiodarone Premix 360 MG/200 ML BAG IVC SCH (05:56)
[2021-04-19] MEDS: Cefepime HCl 1,000 MG in Water for inj. (sterile) 10 ML IVP SCH (05:56)
[2021-04-19 07:07] LABS: Basophils % 0.3 %; Hematocrit 30.3 % (37.5-50.1); Hemoglobin 9.4 g/dL (12.9-16.9); Immature Granulocytes % 0.9 % (0-4); Lymphocytes % 6.6 %; Mean Corpuscular Hemoglobin 27.6 pg (28.0-33.3); Mean Corpuscular Volume 88.9 fL (83.0-100.0); Mean Platelet Volume 11.2 fL (9.4-12.4); Monocytes # 1.4 K/mcL (0.0-1.3); Monocytes % 9.2 %; Platelet Count 156 K/mcL (140-400); Red Blood Count 3.41 M/mcL (4.19-5.50); Red Cell Distribution Width 14.7 % (11.5-14.5); White Blood Count 15.6 K/mcL (4.3-11.1)
[2021-04-19 07:31] LABS: Calcium 8.5 mg/dL (8.6-10.3); Potassium 3.8 mEq/L (3.5-5.1)
[2021-04-19] MEDS: Budesonide/Formoterol 160/4.5 1 PUFF INH IH SCH (07:34)
[2021-04-19] MEDS: Aspirin Enteric Coated 81 MG Tablet PO SCH (08:07)
[2021-04-19] MEDS: Furosemide 20 MG/2 ML VIAL IVP SCH (08:07)
[2021-04-19] MEDS: carvediloL 6.25 MG TABLET PO SCH ×2 (08:07→17:15)
[2021-04-19] MEDS: Pantoprazole 40 MG VIAL IVP SCH (08:07)
[2021-04-19] MEDS: amLODIPine 5 MG TABLET PO SCH (08:07)
[2021-04-19] MEDS: Chlorhexidine Rinse 15 ML MOUTHWASH MM SCH (08:07)
[2021-04-19] MEDS: Insulin LISPRO 300 UNITS/3 ML VIAL SUBQ SCH ×3 (08:08→21:00)
[2021-04-19] MEDS: 0.9 % Sodium Chloride 1,000 ML IVC SCH ×2 (09:58→16:24)
[2021-04-19] MEDS ORDERED: Lidocaine Viscous Oral Soln 15 ML SOLUTION MM PRN (12:54)
[2021-04-19] MEDS ORDERED: Furosemide 20 MG/2 ML VIAL IVP SCH (21:00)
[2021-04-20] MEDS: 0.9 % Sodium Chloride 1,000 ML IVC SCH (05:48)
[2021-04-20] MEDS: amLODIPine 5 MG TABLET PO SCH (07:25)
[2021-04-20] MEDS: Aspirin Enteric Coated 81 MG Tablet PO SCH (07:25)
[2021-04-20] MEDS: carvediloL 6.25 MG TABLET PO SCH ×2 (07:25→16:35)
[2021-04-20] MEDS ORDERED: Pantoprazole 40 MG VIAL IVP SCH (09:00)
[2021-04-20] MEDS ORDERED: Amiodarone Premix 150 MG/100 ML BAG IVPB ONE (09:58)
[2021-04-20] MEDS ORDERED: Furosemide 40 MG/4 ML VIAL IVP ONE (10:04)
[2021-04-20] MEDS: *HR* Amiodarone 200 MG TABLET PO SCH ×3 (10:25→20:03)
[2021-04-20] MEDS: Acetaminophen 325 MG TABLET PO PRN (12:05)
[2021-04-20] MEDS: Insulin LISPRO 300 UNITS/3 ML VIAL SUBQ SCH ×3 (12:06→20:04)
[2021-04-20 13:52] LABS: Albumin 2.9 g/dL (3.5-5.7); Calcium 8.1 mg/dL (8.6-10.3); Potassium 3.5 mEq/L (3.5-5.1)
[2021-04-20] MEDS ORDERED: Insulin LISPRO 300 UNITS/3 ML VIAL SUBQ STA (14:27)
[2021-04-20] MEDS ORDERED: *HR* Amiodarone 200 MG TABLET PO SCH (15:00)
[2021-04-20] MEDS: Insulin DETEMIR 100 UNIT/ML X5UNITS SUBQ SCH (20:04)
[2021-04-21] MEDS: ALPRAZolam 0.25 MG TABLET PO PRN ×2 (03:09→22:58)
[2021-04-21 06:04] LABS: Basophils # 0.1 K/mcL (0.0-0.2); Basophils % 0.5 %; Eosinophils # 0.2 K/mcL (0.0-0.6); Eosinophils % 2.3 %; Hematocrit 28.7 % (37.5-50.1); Hemoglobin 9.2 g/dL (12.9-16.9); Immature Granulocytes % 0.6 % (0-4); Lymphocytes # 1.4 K/mcL (0.6-4.6); Lymphocytes % 14.3 %; Mean Corpuscular HGB Conc 32.1 g/dL (31.6-35.5); Mean Corpuscular Hemoglobin 26.9 pg (28.0-33.3); Mean Corpuscular Volume 83.9 fL (83.0-100.0); Mean Platelet Volume 11.2 fL (9.4-12.4); Monocytes # 1.4 K/mcL (0.0-1.3); Monocytes % 14.5 %; Neutrophils # 6.5 K/mcL (1.6-8.9); Platelet Count 216 K/mcL (140-400); Red Blood Count 3.42 M/mcL (4.19-5.50); Red Cell Distribution Width 14.3 % (11.5-14.5); Segmented Neutrophils % 67.8 %; White Blood Count 9.6 K/mcL (4.3-11.1)
[2021-04-21 06:23] LABS: Magnesium 2.2 mg/dL (1.6-2.6); Potassium 3.2 mEq/L (3.5-5.1)
[2021-04-21] MEDS: Furosemide 40 MG/4 ML VIAL IVP SCH (08:06)
[2021-04-21] MEDS: Insulin LISPRO 300 UNITS/3 ML VIAL SUBQ SCH ×4 (08:09→20:39)
[2021-04-21] MEDS: Aspirin Enteric Coated 81 MG Tablet PO SCH (08:10)
[2021-04-21] MEDS: *HR* Amiodarone 200 MG TABLET PO SCH (08:11)
[2021-04-21] MEDS: amLODIPine 5 MG TABLET PO SCH (08:11)
[2021-04-21] MEDS: carvediloL 6.25 MG TABLET PO SCH ×2 (08:11→16:39)
[2021-04-21] MEDS: Insulin DETEMIR 100 UNIT/ML X5UNITS SUBQ SCH (20:39)
[2021-04-22 02:32] LABS: Magnesium 2.2 mg/dL (1.6-2.6); Potassium 3.4 mEq/L (3.5-5.1)
[2021-04-22] MEDS: Aspirin Enteric Coated 81 MG Tablet PO SCH (08:17)
[2021-04-22] MEDS: amLODIPine 5 MG TABLET PO SCH (08:17)
[2021-04-22] MEDS: carvediloL 6.25 MG TABLET PO SCH ×2 (08:17→17:50)
[2021-04-22] MEDS: Furosemide 40 MG/4 ML VIAL IVP SCH (08:18)
[2021-04-22] MEDS: Insulin LISPRO 300 UNITS/3 ML VIAL SUBQ SCH ×4 (08:20→20:58)
[2021-04-22] MEDS: *HR* Amiodarone 200 MG TABLET PO SCH ×2 (14:16→20:56)
[2021-04-22] MEDS: Benzocaine 20% 12 APPL GEL..GRAM. TP PRN ×2 (14:25→21:02)
[2021-04-22] MEDS: Insulin DETEMIR 100 UNIT/ML X5UNITS SUBQ SCH (20:57)
[2021-04-22] MEDS: Acetaminophen 325 MG TABLET PO PRN (21:53)
[2021-04-23] MEDS: ALPRAZolam 0.25 MG TABLET PO PRN (01:29)
[2021-04-23 06:30] LABS: Calcium 8.1 mg/dL (8.6-10.3); Magnesium 2.1 mg/dL (1.6-2.6); Potassium 3.4 mEq/L (3.5-5.1)
[2021-04-23 07:16] VITALS: BP 133/49
[2021-04-23] MEDS: carvediloL 6.25 MG TABLET PO SCH (07:44)
[2021-04-23] MEDS: Furosemide 40 MG/4 ML VIAL IVP SCH (07:45)
[2021-04-23] MEDS: *HR* Amiodarone 200 MG TABLET PO SCH (07:45)
[2021-04-23] MEDS: amLODIPine 5 MG TABLET PO SCH (07:45)
[2021-04-23] MEDS: Aspirin Enteric Coated 81 MG Tablet PO SCH (07:45)
[2021-04-23] MEDS: Insulin LISPRO 300 UNITS/3 ML VIAL SUBQ SCH (07:46)
== END 2021-04-23 11:08 | disposition home or self-care (01) | DRG 234 ==
LOC: 2NENU → SUATTDRO 01:13 → 2NNU 18:42 → SUATTDRO 04-12 16:31 → 2ANU 04-13 15:56 → 2NNU 04-15 14:27 → ICNU 04-16 07:48 → 2NNU 04-19 19:02
PROVIDERS: ADMIT Internal Medicine; ATTEND Thoracic Surgery (Cardiothoracic Vascular Surgery)

== ENCOUNTER 2021-04-26 02:21 | Observation (INO) ==
[2021-04-26] MEDS ORDERED: Ondansetron 4 MG/2 ML VIAL IVP PRN (05:01)
[2021-04-26] MEDS ORDERED: Naloxone 0.4 MG/ML INJ IVP PRN (05:01)
[2021-04-26] MEDS ORDERED: Acetaminophen 325 MG TABLET PO PRN (05:01)
[2021-04-26] MEDS ORDERED: D5% in Water 1,000 ML IVC PRN (05:28)
[2021-04-26] MEDS ORDERED: Dextrose Gel 15 GM/37.5 ML TUBE PO PRN ×2 (05:28)
[2021-04-26] MEDS ORDERED: *HR* Dextrose 50 % in Water (Vial) 50 ML VIAL IVP PRN (05:28)
[2021-04-26] MEDS ORDERED: Perflutren Lipid Microsphere 1.3 ML in 0.9 % Sodium Chloride 8.7 ML IVP PRN (05:34)
[2021-04-26 05:51] LABS: Basophils # 0.1 K/mcL (0.0-0.2); Basophils % 0.5 %; Eosinophils # 0.2 K/mcL (0.0-0.6); Eosinophils % 2.1 %; Hematocrit 29.4 % (37.5-50.1); Hemoglobin 9.5 g/dL (12.9-16.9); Immature Granulocytes % 0.8 % (0-4); Lymphocytes # 1.4 K/mcL (0.6-4.6); Lymphocytes % 12.6 %; Mean Corpuscular HGB Conc 32.3 g/dL (31.6-35.5); Mean Corpuscular Hemoglobin 27.5 pg (28.0-33.3); Mean Corpuscular Volume 85.2 fL (83.0-100.0); Mean Platelet Volume 10.2 fL (9.4-12.4); Monocytes # 1.1 K/mcL (0.0-1.3); Monocytes % 9.4 %; Neutrophils # 8.5 K/mcL (1.6-8.9); Nucleated Red Blood Cells 0.2 /100 WBC (0); Platelet Count 400 K/mcL (140-400); Red Blood Count 3.45 M/mcL (4.19-5.50); Red Cell Distribution Width 14.4 % (11.5-14.5); Segmented Neutrophils % 74.6 %; White Blood Count 11.4 K/mcL (4.3-11.1)
[2021-04-26] MEDS ORDERED: Ipratropium/Albuterol Neb 3 ML IH PRN (05:57)
[2021-04-26 05:58] LABS: INR 1.1; Prothrombin Time 12.5 Seconds (9.4-12.1)
[2021-04-26 06:01] LABS: Bacteria,Urine Few per hpf (None-Few); Bilirubin,Urine Negative (Negative); Blood,Urine Small (Negative); Clarity,Urine Clear (Clear); Color,Urine Colorless (Yellow); Glucose,Urine (UA) 500 mg/dL (Normal); Ketones,Urine Negative (Negative); Leukocyte Esterase,Urine Negative (Negative); Nitrite,Urine Negative (Negative); Protein,Urine 100 mg/dL (Neg-Trace); RBC,Urine 0-3 per hpf (0-3); Specific Gravity,Urine 1.009 (1.010-1.025); Squamous Epithelial Cell,Urine Few per hpf (None-Few); Urobilinogen,Urine Normal (Normal); WBC,Urine 0-3 per hpf (0-3)
[2021-04-26 06:11] LABS: Albumin/Globulin Ratio 0.9 (1.1-2.2); Bilirubin,Total 0.3 mg/dL (0.3-1.0); Calcium 8.5 mg/dL (8.6-10.3); Globulin 3.4 g/dL (2.4-3.5); Magnesium 2.1 mg/dL (1.6-2.6); Potassium 3.6 mEq/L (3.5-5.1); Total Protein 6.4 g/dL (6.4-8.9)
[2021-04-26] MEDS: Insulin LISPRO 300 UNITS/3 ML VIAL SUBQ SCH ×3 (08:35→15:32)
[2021-04-26] MEDS ORDERED: Furosemide 40 MG/4 ML VIAL IVP ONE (14:15)
[2021-04-26] MEDS ORDERED: ALPRAZolam 0.25 MG TABLET PO PRN (16:18)
[2021-04-26] MEDS: carvediloL 6.25 MG TABLET PO SCH (16:56)
[2021-04-26] MEDS ORDERED: Insulin LISPRO 300 UNITS/3 ML VIAL SUBQ SCH (21:00)
[2021-04-27 03:41] LABS: Hematocrit 31.3 % (37.5-50.1); Hemoglobin 9.7 g/dL (12.9-16.9); Mean Corpuscular Hemoglobin 26.6 pg (28.0-33.3); Mean Platelet Volume 10.3 fL (9.4-12.4); Platelet Count 417 K/mcL (140-400); Red Blood Count 3.64 M/mcL (4.19-5.50); Red Cell Distribution Width 14.3 % (11.5-14.5); White Blood Count 14.8 K/mcL (4.3-11.1)
[2021-04-27 04:01] LABS: Calcium 8.5 mg/dL (8.6-10.3); Potassium 3.7 mEq/L (3.5-5.1)
[2021-04-27] MEDS: Insulin LISPRO 300 UNITS/3 ML VIAL SUBQ SCH ×2 (08:32→11:47)
[2021-04-27] MEDS: carvediloL 6.25 MG TABLET PO SCH (08:32)
[2021-04-27] MEDS ORDERED: *HR* Amiodarone 200 MG TABLET PO SCH (09:00)
[2021-04-27] MEDS ORDERED: Aspirin 81 MG TAB.CHEW PO SCH (09:00)
[2021-04-27] MEDS ORDERED: Furosemide 40 MG/4 ML VIAL IVP SCH (09:00)
[2021-04-27] MEDS ORDERED: amLODIPine 5 MG TABLET PO SCH (09:00)
[2021-04-27 11:45] VITALS: BP 131/59
== END 2021-04-27 13:23 | disposition home or self-care (01) ==
LOC: ICNU → SUATTDRO 04:52 → 2NNU 16:36
PROVIDERS: ADMIT Internal Medicine; ATTEND Internal Medicine

== ENCOUNTER 2022-02-02 21:26 | Inpatient (IN) ==
[2022-02-02] MEDS ORDERED: Naloxone 0.4 MG/ML INJ IVP PRN (23:49)
[2022-02-02] MEDS ORDERED: Melatonin 3 MG TABLET PO PRN (23:49)
[2022-02-03] MEDS ORDERED: Dextrose 4 GM Chewable Tablets PO PRN ×2 (00:11)
[2022-02-03] MEDS ORDERED: D5% in Water 1,000 ML IVC PRN (00:11)
[2022-02-03] MEDS ORDERED: *HR* Dextrose 50 % in Water (Syg) 50 ML SYRINGE IVP PRN (00:11)
[2022-02-03] MEDS ORDERED: Perflutren Lipid Microsphere 1.3 ML in 0.9 % Sodium Chloride 8.7 ML IVP PRN (00:13)
[2022-02-03] MEDS ORDERED: *HR* Heparin 5,000 UNIT/ML VIAL SQ SCH (06:00)
[2022-02-03 06:57] VITALS: O2SAT 97
[2022-02-03 07:07] LABS: Hematocrit 45.8 % (37.5-50.1); Hemoglobin 14.7 g/dL (12.9-16.9); Mean Corpuscular HGB Conc 32.1 g/dL (31.6-35.5); Mean Corpuscular Hemoglobin 28.1 pg (28.0-33.3); Mean Corpuscular Volume 87.4 fL (83.0-100.0); Mean Platelet Volume 10.6 fL (9.4-12.4); Platelet Count 184 K/mcL (140-400); Red Blood Count 5.24 M/mcL (4.19-5.50); Red Cell Distribution Width 15.6 % (11.5-14.5); White Blood Count 8.7 K/mcL (4.3-11.1)
[2022-02-03] MEDS ORDERED: Insulin LISPRO 300 UNITS/3 ML VIAL SUBQ SCH ×2 (07:30→10:43)
[2022-02-03 07:38] LABS: Calcium 8.5 mg/dL (8.6-10.3); Magnesium 2.2 mg/dL (1.6-2.6); Phosphorous 4.2 mg/dL (2.7-4.5); Troponin I 0.06 ng/mL (< 0.04)
[2022-02-03] MEDS ORDERED: 0.9 % Sodium Chloride 1,000 ML IVC SCH (07:45)
[2022-02-03] MEDS ORDERED: carvediloL 6.25 MG TABLET PO SCH (08:00)
[2022-02-03 08:31] LABS: Chol/HDL Ratio 4.4 (0-4.9)
[2022-02-03] MEDS ORDERED: Aspirin 81 MG TAB.CHEW PO SCH (09:00)
[2022-02-03 10:38] LABS: Estimated Average Glucose 266 mg/dl; Hemoglobin A1C 10.9 %
[2022-02-03 10:55] VITALS: BP 166/52; PULSE 58; TEMP 97.8
== END 2022-02-03 13:58 | disposition left against medical advice (07) | DRG 305 ==
LOC: 3BNU → SUATTDRO 23:11
PROVIDERS: ADMIT Internal Medicine; ATTEND Internal Medicine